=== PATIENT | female | born 1955 | race Caucasian/White ===

== ENCOUNTER → 2023-09-08 09:34 | Outpatient (BNVA) | payer MEDICARE, OTHER, SELFPAY | PROVIDERS: PCP Family Medicine Adult Medicine; Visit Provider Psychiatry & Neurology Neurology | DX: G62.9 Polyneuropathy, unspecified (principal) | CPT/HCPCS: 99203 ==

== ENCOUNTER → 2023-10-04 15:26 | Outpatient (BNVA) | payer MEDICARE, OTHER, SELFPAY | PROVIDERS: PCP Family Medicine Adult Medicine; Visit Provider Obstetrics & Gynecology | DX: R10.2 Pelvic and perineal pain (principal) | CPT/HCPCS: 76830 ==

== ENCOUNTER → 2023-10-05 11:01 | Outpatient (BNVA) | payer MEDICARE, OTHER, SELFPAY | PROVIDERS: PCP Family Medicine Adult Medicine; Visit Provider Internal Medicine Rheumatology | DX: M17.12 Unilateral primary osteoarthritis, left knee (principal); M19.042 Primary osteoarthritis, left hand; M19.071 Primary osteoarthritis, right ankle and foot; M45.6 Ankylosing spondylitis lumbar region; Z11.59 Encounter for screening for other viral diseases; Z11.1 Encounter for screening for respiratory tuberculosis; Z79.899 Other long term (current) drug therapy; M35.00 Sjogren syndrome, unspecified; M54.50 Low back pain, unspecified; G89.29 Other chronic pain | CPT/HCPCS: 36415; 73130; 73562; 73630; 80076; 82306; 82565; 85025; 85651; 86140; 86200; 86431; 86480; 86704; 86803; 86812; 87340; 99204 ==

== ENCOUNTER 2023-10-19 13:06 | Outpatient (CLI) | payer MEDICARE, OTHER, SELFPAY ==
--- NOTE | 2023-10-19 13:15 | XR_ITS ---
WS: [id number] Lumbar spine with flexion, extension, and neutral lateral, 10/19/2023 Clinical Data: POSTLAMINECTOMY SYNDROME Comparison: None. Findings: No compression fractures or subluxation is seen. There is degenerative disc narrowing at L5-S1. There are anterior osteophytes at all the lumbar vertebral bodies. No limitation of motion or subluxation is seen. Impression: 1. Degenerative disc narrowing at L5-S1 with moderate osteophytes L1-L5. 2. Negative for limitation of motion or subluxation on flexion or extension.
== END 2023-10-19 13:07 | disposition home or self-care (01) ==
LOC: RAD 13:07
PROVIDERS: PCP Family Medicine Adult Medicine; Visit Provider Nurse Practitioner
DX: M96.1 Postlaminectomy syndrome, not elsewhere classified (principal); M51.37 Other intervertebral disc degeneration, lumbosacral region; M48.07 Spinal stenosis, lumbosacral region; M25.78 Osteophyte, vertebrae
CPT/HCPCS: 72120

== ENCOUNTER 2023-12-03 07:34 | Emergency (ER) | payer MEDICARE, OTHER, SELFPAY ==
[2023-12-03 07:42] VITALS: BP 159/90; PULSE 82; RESP 16; TEMP 36.5; O2SAT 97; BMI 30.6
--- NOTE | 2023-12-03 07:49 | XRR_ITS ---
PROCEDURE INFORMATION: Exam: XR Chest Exam date and time: 12/03/2023 8:11 AM Age: 68 years old Clinical indication: Cough and dyspnea; Additional info: Dyspnea/cough TECHNIQUE: Imaging protocol: Radiologic exam of the chest. Views: 1 view. COMPARISON: No relevant prior studies available. FINDINGS: Lungs: Unremarkable. No consolidation. Pleural spaces: Unremarkable. No pleural effusion. No pneumothorax. Heart/Mediastinum: Unremarkable. No cardiomegaly. Vasculature: Unfolding of the thoracic aorta. Bones/joints: There is moderate degenerative bilateral acromioclavicular and bilateral glenohumeral joints. XR/XR chest 1V portable [id number] IMPRESSION: No acute cardiopulmonary process.
--- NOTE | 2023-12-03 07:59 | ED_ITS ---
HPI - Abdominal Pain 2 General: Chief Complaint: Abdominal Pain Stated Complaint: right side abd and back pain Time Seen by Provider: 12/03/23 07:40 Source: patient Mode of arrival: ambulatory History of Present Illness: 68-year-old female presents emergency ro om complaining of right side pain. Began earlier this week she relates that after she was gardening she notes that when she moves or takes a deep breath or palpates the lower ribs particular on the right side she has increased discomfort. She has not noticed any rash. No fever sweats chills nausea vomiting or diarrhea no dysuria urgency or frequency. No hematochezia melena hematemesis coffee-ground emesis. She has previously had several abdominal surgeries including a hysterectomy C-sections and tubal ligation. MD elicited complaint: abdominal pain Onset (ago): day(s) Pain Consistency: constant Quality: sharp Exacerbating factors: movement and other (Elevation of the lower ribs) Relieving factors: nothing Associated Symptoms: Denies anorexia, belching, bloating, change in bowel habits, change in stool character, chills, coffee ground emesis, constipation, GI cramping, diarrhea, dyspepsia, dysuria, excessive flatus, fever(s), heartburn, hematochezia, hematuria, hematemesis, fecal incontinence, loose stools, melena, nausea, poor appetite, syncope and vomiting Review of Systems 2 Const: Denies: fever(s) or chills Card: Denies: chest pain or syncope Resp: Denies: dyspnea GI: Denies: abdominal pain, nausea, vomiting, hematemesis, coffee ground emesis, heartburn, diarrhea, constipation, bloating, GI cramping, belching, excessive flatus, fecal incontinence, change in bowel habits, change in stool character, hematochezia or melena : Denies: dysuria, urinary frequency, urinary urgency or hematuria Musc: Denies: neck pain or back pain Skin/Breast: Denies: rash PFSH ED 2 PFSH: Medical History Pain management contract agreement [facility] 10/17/2023, Screen THC pos. 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 Last CT was April 2023. MGUS (monoclonal gammopathy of unknown significance) Abnormal colonoscopy Deviated nasal septum Ganglion cyst Carpal tunnel syndrome Surgical History History of partial hysterectomy S/P bilateral breast reduction History of tonsillectomy H/O tubal ligation H/O: section History of back surgery Family History Father Stroke Heart disease Mother Liver disease Hepatitis Brother Diabetes mellitus, type 2 Bypass graft stenosis Parkinson disease Physical Exam 2 Const: COMMON NORMALS: no acute distress GENERAL APPEARANCE: cooperative and comfortable ORIENTATION/CONSCIOUSNESS: Yes awake, Yes oriented to person, Yes oriented to place and Yes oriented to time HENMT: COMMON NORMALS: normocephalic, atraumatic and hearing grossly normal bilaterally HEAD & SCALP: normocephalic and atraumatic Resp: COMMON NORMALS: normal respiratory effort, No retractions, No use of accessory muscles and clear to auscultation bilaterally AUSCULTATION: clear to auscultation bilaterally Cardio: COMMON NORMALS: regular rate, regular rhythm and No murmurs present (Cardio) RATE: regular rate RHYTHM: regular rhythm GI: COMMON NORMALS: Soft to palpation and No hepatosplenomegaly present A USCULTATION: Yes normoactive bowel sounds PALPATION: Yes Soft to palpation, No Tenderness to palpation present (GI), No Guarding due to palpation present (GI) and Yes No hepatosplenomegaly present Extremity: COMMON NORMALS: normal to inspection, capillary refill normal, no clubbing, cyanosis or edema, no calf tenderness and no pedal edema Neuro: SENSORIUM/ORIENTATION: Yes oriented to person, Yes oriented to place and Yes oriented to time Skin: COMMON NORMALS: no rashes or lesions noted GENERAL SKIN EXAM: no rashes or lesions noted Course 2 Vital Signs: Vital signs: Vital Signs Temperature 97.7 F 12/03/23 07:42 Pulse Rate 82 12/03/23 07:42 Respiratory Rate 16 12/03/23 07:42 Blood Pressure 159/90 12/03/23 07:42 Pulse Oximetry 97 12/03/23 07:42 Oxygen Delivery Me thod Room Air 12/03/23 07:42 MDM - Abdominal Pain Medical Decision Making Labs reviewed as well as chest x-ray. No acute findings on chest x-ray labs and UA unremarkable abdominal exam is benign patient has reproducible pain with movement and deep inspiration pain refers to the lower aspect of the ribs. Suspect a lot of this is due to the activity she participated in earlier in the week that seem to precipitate it. Use diclofenac p.o. and tizanidine as needed hold the topical diclofenac while using the oral. If persist follow-up with primary care Medical Records I reviewed the patient's medical records. Lab Data I reviewed the patient's lab results. 12/03/23 08:08 12/03/23 08:08 Labs/Radiology: Radiology Impressions Chest X-Ray 12/03/23 07:49 IMPRESSION: No acute cardiopulmonary process. Laboratory Results WBC 4.72 10^3/uL (3.29-11.43) 12/03/23 08:08 RBC 3.65 10^6/uL (3.85-5.65) L 12/03/23 08:08 Hgb 11.80 g/dL (11.27-16.99) 12/03/23 08:08 Hct 36.0 % (36-47) 12/03/23 08:08 MCV 98.6 fl (85-98) H 12/03/23 08:08 MCH 32.3 pg (27-33) 12/03/23 08:08 MCHC 32.8 g/dL (30-55) 12/03/23 08:08 RDW 14.8 % (12.1-15.1) 12/03/23 08:08 Plt Count 262 10^3/cmm (157-399) 12/03/23 08:08 MPV 10.3 fL (7.4-10.4) 12/03/23 08:08 Neut % (Auto) 51.1 % 12/03/23 08:08 Lymph % (Auto) 33.9 % 12/03/23 08:08 [place] % (Auto) 9.7 % 12/03/23 08:08 Eos % (Auto) 4.9 % 12/03/23 08:08 Baso % (Auto) 0.4 % 12/03/23 08:08 Neut # (Auto) 2.41 10^3/uL (1.8-7.7) 12/03/23 08:08 Lymph # (Auto) 1.6 10^3/uL (0.8-4.8) 12/03/23 08:08 [place] # (Auto) 0.5 10^3/uL (0.2-0.9) 12/03/23 08:08 Eos # (Auto) 0.2 10^3/uL (0.0-0.8) 12/03/23 08:08 Baso # (Auto) 0.0 10^3/uL (0.0-0.1) 12/03/23 08:08 Nucleated RBC % (auto) 0 % 12/03/23 08:08 Nucleated RBCs # 0.0 /100WBC 12/03/23 08:08 Sodium 138 mmol/L (136-145) 12/03/23 08:08 Potassium 4.1 mmol/L (3.5-5.1) 12/03/23 08:08 Chloride 103 mmol/L (98-107) 12/03/23 08:08 Carbon Dioxide 25 mmol/L (22-29) 12/03/23 08:08 Anion Gap 14.1 (5-19) 12/03/23 08:08 BUN 14 mg/dL (8-23) 12/03/23 08:08 Creatinine 0.7 mg/dL (0.5-0.9) 12/03/23 08:08 GFR Calculation 83.7 mL/min (90-130) L 12/03/23 08:08 Glucose 97 mg/dL (65-115) 12/03/23 08:08 Calculated Osmolality 286 mOsm/kg (285-295) 12/03/23 08:08 Calcium 9.1 mg/dL (8.5-10.5) 12/03/23 08:08 Total Bilirubin 0.4 mg/dL (0.15-1.2) 12/03/23 08:08 AST 20 U/L (0-32) 12/03/23 08:08 ALT 23 U/L (0-33) 12/03/23 08:08 Alkaline Phosphatase 57 U/L (35-105) 12/03/23 08:08 Total Protein 7.0 g/dL (6.6-8.7) 12/03/23 08:08 Albumin 3.7 g/dL (3.5-5.2) 12/03/23 08:08 Globulin 3.3 g/dL (1.3-4.6) 12/03/23 08:08 Lipase 18 U/L (13-60) 12/03/23 08:08 Urine Color Yellow (Yellow) 12/03/23 08:12 Urine Appearance Clear (CLEAR) 12/03/23 08:12 Urine pH 6 (5-7) 12/03/23 08:12 Ur Specific [place] 1.020 (1.005-1.030) 12/03/23 08:12 Urine Protein Neg (Negative) 12/03/23 08:12 Urine Glucose (UA) Norm (Normal) 12/03/23 08:12 Urine Ketones Negative (Negative) 12/03/23 08:12 Urine Blood Trace (Negative) H 12/03/23 08:12 Urine Nitrate Negative (Negative) 12/03/23 08:12 Urine Bilirubin Neg (Negative) 12/03/23 08:12 Urine Urobilinogen Norm mg/dL (Negative) 12/03/23 08:12 Ur Leukocyte Esterase Negative (Negative) 12/03/23 08:12 Urine RBC Rare /hpf (0-2) 12/03/23 08:12 Urine WBC Rare /hpf (0-5) 12/03/23 08:12 Ur Squamous Epith Cells 0-4 /hpf (0-5) H 12/03/23 08:12 Amorphous Sediment Not Reportable 12/03/23 08:12 Urine Bacteria Trace /hpf (NONE) 12/03/23 08:12 Urine Mucus Trace /hpf 12/03/23 08:12 All radiology interpretation(s) finalized by discharge Discharge Plan Discharge Patient Disposition: Home Clinical Impression: Back pain, thoracic Condition: Stable Prescriptions: New tizanidine 4 mg tablet 4 mg PO Q6H PRN (Reason: muscle spasticity) Qty: 20 0RF Rx Instructions: do not exceed 3 doses per 24 hrs diclofenac sodium 75 mg tablet,delayed release (DR/EC) 75 mg PO Q12H PRN (Reason: pain) Qty: 20 0RF Discontinued diclofenac sodium 1 % kit 2 g topical QID Rx Instructions: apply to single elbow, wrist or hand; for hand includes palm/fingers/back of hand No Action methotrexate sodium 2.5 mg tablet See Rx Instructions PO .Q7days Qty: 30 3RF Rx Instructions: take 6 tabs on same day once a week PO .Q7days; folic acid 1 mg tablet 1 mg PO DAILY Qty: 30 3RF prednisone 20 mg tablet See Rx Instructions PO .COMPLEX PRN (Reason: joint pain flare) Qty: 30 1RF Rx Instructions: take 1 or 2 tab daily for 3-7 days as needed for arthritis flare PO PRN; estradiol 0.01 % (0.1 mg/gram) cream 1 g vaginal .twice a week Rx Instructions: for 14 days clobetasol 0.05 % solution 1 applic topical .twice a week albuterol sulfate [ProAir HFA] 90 mcg/actuation HFA aerosol inhaler 2 puff inhalation 6XD PRN (Reason: Shortness Of Breath Or Wheezing) multivitamin Tablet 1 tab PO DAILY cholecalciferol (vitamin D3) 25 mcg (1,000 unit) capsule 25 mcg PO DAILY magnesium 250 mg tablet 250 mg PO DAILY estradiol 10 mcg tablet 10 mcg vaginal .twice a week Qty: 30 11RF turmeric 400 mg Capsule 400 mg PO DAILY Discharge Orders: Discharge ED (Routine); Ordered 12/03/23 Ordered By: Dani Harris Referrals: Pillo Centeno MD [Primary Care Provider] - Discharge Diet: Usual diet Discharge Activity: Increase activity as tolerated Patient Instructions: Opioid Safety, Pain Management Activity Restrictions/Additional Instructions: Thank you for choosing [facility] for your healthcare needs today. Please realize this is an emergency room and that we are providing you with a medical screening exam and this may not be complete and all inclusive of all the testing and or work up that you may need to determine your ailment or severity of your illness. It is very important that you follow up as instructed or that you return to the Emergency Department should you have concerns or if your condition changes or worsens in any way. You are seen today for pain in her lower ribs and mid back. Laboratory tests chest x-ray unremarkable abdominal exam was benign. Suspect this is musculoskeletal given the history you described likely related to the activity earlier in the week use diclofenac orally and tizanidine as needed. Do not use topical diclofenac while using the oral version. Follow-up with your primary care doctor if not improving Coding Level of Care Code ED Strategy Execution Consultant for Leandra Leiva
[2023-12-03 08:26] LABS: Basophils % 0.4 %; Eosinophils # 0.2 10^3/uL (0.0-0.8); Eosinophils % 4.9 %; Lymphocytes # 1.6 10^3/uL (0.8-4.8); Lymphocytes % 33.9 %; Mean Corpuscular HGB Conc 32.8 g/dL (30-55); Mean Corpuscular Hemoglobin 32.3 pg (27-33); Mean Corpuscular Volume 98.6 fl (85-98); Mean Platelet Volume 10.3 fL (7.4-10.4); Monocytes # 0.5 10^3/uL (0.2-0.9); Monocytes % 9.7 %; Neutrophils # 2.41 10^3/uL (1.8-7.7); Neutrophils % 51.1 %; Nucleated Red Blood Cells % 0 %; Platelet Count 262 10^3/cmm (157-399); Red Blood Count 3.65 10^6/uL (3.85-5.65); Red Cell Distribution Width 14.8 % (12.1-15.1); White Blood Count 4.72 10^3/uL (3.29-11.43)
[2023-12-03 08:39] LABS: Alanine Aminotransferase 23 U/L (0-33); Albumin Level 3.7 g/dL (3.5-5.2); Alkaline Phosphatase 57 U/L (35-105); Blood Urea Nitrogen 14 mg/dL (8-23); Calcium 9.1 mg/dL (8.5-10.5); Carbon Dioxide 25 mmol/L (22-29); Chloride 103 mmol/L (98-107); Creatinine Clr Calc Pharmacy 73.8031; Globulin 3.3 g/dL (1.3-4.6); Glomerular Filtration Rate 83.7 mL/min (90-130); Glucose 97 mg/dL (65-115); Lipase 18 U/L (13-60); Osmolality Calculated 286 mOsm/kg (285-295); Sodium 138 mmol/L (136-145); Total Bilirubin 0.4 mg/dL (0.15-1.2)
[2023-12-03 08:55] LABS: Anion Gap 14.1 (5-19); Aspartate Amino Transferase 20 U/L (0-32); Potassium 4.1 mmol/L (3.5-5.1)
[2023-12-03 09:00] LABS: Add Urine Culture? No; Add Urine Microscopic? YES; Bacteria Urine TRACE /hpf; Bilirubin Urine Neg (Negative); Blood Urine Trace (Negative); Glucose Urine UA Norm (Normal); Ketones Urine Negative (Negative); Leukocyte Esterase Urine Negative (Negative); Mucus Urine TRACE /hpf; Nitrate Urine Negative (Negative); Protein Urine Neg (Negative); RBC Urine RARE /hpf (0-2); Squamous Epithelial Cell Urine 0-4 /hpf (0-5); Urine Appearance Clear (CLEAR); Urine Color Yellow (Yellow); Urobilinogen Urine Norm (Negative); WBC Urine RARE /hpf (0-5); pH Urine 6 (5-7)
[2023-12-03 09:21] VITALS: BP 159/90; PULSE 82; RESP 16; TEMP 36.5; O2SAT 97
== END 2023-12-03 09:20 | disposition home or self-care (01) ==
PROVIDERS: Emergency Provider Family Medicine; PCP Family Medicine Adult Medicine
DX: M54.6 Pain in thoracic spine (principal)
CPT/HCPCS: 71045; 80053; 81001; 83690; 85025; 99284

== ENCOUNTER → 2024-01-10 11:08 | Outpatient (BNVA) | payer MEDICARE, OTHER, SELFPAY | PROVIDERS: PCP Family Medicine Adult Medicine; Visit Provider Internal Medicine Rheumatology | DX: D47.2 Monoclonal gammopathy (principal); Z79.899 Other long term (current) drug therapy; M35.00 Sjogren syndrome, unspecified; M19.90 Unspecified osteoarthritis, unspecified site; M54.50 Low back pain, unspecified; G89.29 Other chronic pain | CPT/HCPCS: 99214 ==

== ENCOUNTER → 2024-01-31 13:32 | Outpatient (BNVA) | payer MEDICARE, OTHER, SELFPAY | PROVIDERS: PCP Family Medicine Adult Medicine; Visit Provider Psychiatry & Neurology Neurology | DX: G62.9 Polyneuropathy, unspecified (principal) | CPT/HCPCS: 99212 ==

== ENCOUNTER 2024-02-01 19:50 | Emergency (ER) | payer MEDICARE, OTHER, SELFPAY ==
--- NOTE | 2024-02-01 19:56 | CTR_ITS ---
PROCEDURE INFORMATION: Exam: CT Head Without Contrast Exam date and time: 02/01/2024 8:50 PM Age: 68 years old Clinical indication: Altered mental status/memory loss; Additional info: Encephalopathy, altered mental status TECHNIQUE: Imaging protocol: Computed tomography of the head without contrast. Radiation optimization: All CT scans at this facility use at least one of these dose optimization techniques: automated exposure control; mA and/or kV adjustment per patient size (includes targeted exams where dose is matched to clinical indication); or iterative reconstruction. COMPARISON: No relevant prior studies available. RADIATION DOSE METRICS: Total DLP (mGy-cm): 1047 FINDINGS: Limitations: Multiple images are degraded by motion artifact. Brain: Mild diffuse cortical volume loss. Mild hypodensities in supratentorial periventricular and subcortical white matter, consistent with microangiopathy. No intracranial hemorrhage. Cerebral ventricles: No ventriculomegaly. Paranasal sinuses: Mild mucosal thickening in the maxillary sinuses. The other sinuses are clear. No air-fluid level. Mastoid air cells: Visualized mastoid air cells are well aerated. Parotid and submandibular glands: Inhomogeneous right parotid gland with multiple suspected small nodules or lymph nodes, the largest measuring 9 mm. Bones: Unremarkable. No acute fracture. Soft tissues: Unremarkable. Vasculature: No hyperdense artery. CT/CT head wo con* [id number] IMPRESSION: No acute intracranial abnormality.
[2024-02-01 20:27] VITALS: BP 155/88; PULSE 79; RESP 18; TEMP 36.4; O2SAT 100; BMI 30.7
[2024-02-01] MEDS: sodium chloride 0.9% 1,000 ML 999 ML IV (20:32)
[2024-02-01] MEDS: LORazepam 2 mg/mL INJ 10 mL MDV 1 MG IV (20:37)
[2024-02-01] MEDS: ondansetron 2 mg/ML SDV 2 mL 4 MG IVP (20:37)
--- NOTE | 2024-02-01 20:44 | ED_ITS ---
Documented by User: Courtney James MD 02/01/24 21:49 HPI - Overdose 2 General: Chief Complaint: Overdose Stated Complaint: THC ingestion Time Seen by Provider: 02/01/24 19:53 History of Present Illness: 68-year-old female who is brought to the emergency room by ambulance with altered mental status. Apparently she ate an edible at a get together this evening and is now altered. She has never taken marijuana before. She had some vomiting. She has no focal motor deficits and is moaning and seems very agitated. Review of Systems 2 Narrative: Unable to obtain secondary to clinical condition. PFS ED 2 PFSH: Medical History Encounter for preoperative assessment Pain management contract agreement [facility] 10/17/2023, Screen THC pos. 10/2023 definitive test ordered High risk medication use Inflammatory arthritis Sjogrens syndrome Osteoarthritis involving multiple joints on both sides of body Bilateral knees, shoulders and spine Rheumatoid arthritis Post menopausal syndrome Chronic low back pain Neuropathy Fibromyalgia Pulmonary nodule monitored (5 years) since 2018 and has grown a total of 2 mm and is now 8 mm in size. Last CT was April 2023. MGUS (monoclonal gammopathy of unknown significance) Abnormal colonoscopy Deviated nasal septum Ganglion cyst Carpal tunnel syndrome Surgical History History of partial hysterectomy S/P bilateral breast reduction History of tonsillectomy H/O tubal ligation H/O: section History of back surgery Family History Father Stroke Heart disease Mother Liver disease Hepatitis Brother Diabetes mellitus, type 2 Bypass graft stenosis Parkinson disease Social History Smoking and tobacco/nicotine status: never used tobacco/nicotine Physical Exam 2 Narrative: EXAM NARRATIVE: General: Patient is moaning and seems agitated. Skin: Warm, dry Head: Normocephalic, atraumatic. Neck: Supple, trachea midline. Eye: Extraocular movements are intact. Ears, nose, mouth and throat: Moist oral mucosa Cardiovascular: Regular rate and rhythm, Normal peripheral perfusion. Respiratory: Lungs are clear to auscultation, respirations are non-labored, breath sounds are equal, Symmetrical chest wall expansion. Gastrointestinal: Soft, Nontender, Non distended, Normal bowel sounds. Musculoskeletal: no deformity. Neurological: Not Alert and oriented, No obvious focal neurological deficit observed. Psychiatric: unable to assess. Course 2 Vital Signs: Vital signs: Vital Signs Temperature 97.6 F 02/01/24 20:27 Pulse Rate 73 02/01/24 21:30 Respiratory Rate 18 02/01/24 21:30 Blood Pressure 156/88 02/01/24 21:30 Pulse Oximetry 98 02/01/24 21:30 Oxygen Delivery Me thod Nasal Cannula 02/01/24 21:30 MDM - Overdose Medical Decision Making Medical decision making: Differential diagnosis including but not limited to and based on the above HPI, review of systems and physical exam: This may be a marijuana reaction. This was her first time taking it and unknown how much THC was in the homemade brownies. Ruling out other causes such as stroke with a CT. Urinalysis. Basic lab work. Orders placed to evaluate differential diagnosis based on the above differential, HPI and physical exam Lab Review: Laboratory results were reviewed and interpreted by myself the emergency room physician. Lab work is unremarkable. CBC has a white count of 7 and hemoglobin of 12.8. BUN and creatinine are 20 and 0.9. Glucose is 125. Urinalysis is pending CT head: No acute intracranial process. no intracranial hemorrhage, no evidence of infarct. no evidence of acute fracture.This was reviewed and interpreted by myself the ER physician. Patient care being transferred to Dr. Melgoza at shift change Lab Data 02/01/24 19:30 02/01/24 19:[address] 02/01/24 19:56 IMPRESSION: No acute intracranial abnormality. Laboratory Results WBC 7.21 10^3/uL (3.29-11.43) 02/01/24 19:30 RBC 3.89 10^6/uL (3.85-5.65) 02/01/24 19:30 Hgb 12.70 g/dL (11.27-16.99) 02/01/24 19:30 Hct 38.4 % (36-47) 02/01/24 19:30 MCV 98.7 fl (85-98) H 02/01/24 19:30 MCH 32.6 pg (27-33) 02/01/24 19:30 MCHC 33.1 g/dL (30-55) 02/01/24 19: RDW 13.7 % (12.1-15.1) 02/01/24: Plt Count 275 10^3/cmm (157-399) 02/01/24 19: MPV 11.7 fL (7.4-10.4) H 02/01/24: Neut % (Auto) 51.2 % 02/01/24 19: Lymph % (Auto) 32.5 % 02/01/24 19:30 [place] % (Auto) 9.2 % 02/01/24: Eos % (Auto) 6.4 % 02/01/24: Baso % (Auto) 0.6 % 02/01/24: Neut # (Auto) 3.70 10^3/uL (1.8-7.7) 02/01/24: Lymph # (Auto) 2.3 10^3/uL (0.8-4.8) 02/01/24: [place] # (Auto) 0.7 10^3/uL (0.2-0.9) 02/01/24 19: Eos # (Auto) 0.5 10^3/uL (0.0-0.8) 02/01/24: Baso # (Auto) 0.0 10^3/uL (0.0-0.1) 02/01/24: Nucleated RBC % (auto) 0 % 02/01/24: Nucleated RBCs # 0.0 /100WBC 02/01/24 19: Sodium 142 mmol/L (136-145) 02/01/24 19: Potassium 4.6 mmol/L (3.5-5.1) 02/01/24: Chloride 105 mmol/L (98-107) 02/01/24: Carbon Dioxide 27 mmol/L (22-29) 02/01/24: Anion Gap 14.6 (5-19) 02/01/24:30 BUN 20 mg/dL (8-23) 02/01/24: Creatinine 0.9 mg/dL (0.5-0.9) 02/01/24: GFR Calculation 62.6 mL/min (90-130) L 02/01/24: Glucose 125 mg/dL (65-115) H 02/01/24: Calculated Osmolality 298 mOsm/kg (285-295) H 02/01/24: Calcium 10.0 mg/dL (8.5-10.5) 02/01/24: Urine Color Yellow (Yellow) 02/01/24: Urine Appearance Cloudy (CLEAR) A 02/01/24: Urine pH 7 (5-7) 02/01/24: Ur Specific [place] 1.010 (1.005-1.030) 02/01/24: Urine Protein Neg (Negative) 02/01/24 Urine Glucose (UA) Norm (Normal) 02/01/24: Urine Ketones Negative (Negative) 02/01/24: Urine Blood Neg (Negative) 02/01/24: Urine Nitrate Negative (Negative) 02/01/24 Urine Bilirubin Neg (Negative) 02/01/24: Urine Urobilinogen Neg mg/dL (Negative) 02/01/24: Ur Leukocyte Esterase Negative (Negative) 02/01/24: Urine RBC None /hpf (0-2) 02/01/24: Urine WBC 0-4 /hpf (0-5) H 02/01/24: Ur Squamous Epith Cells None /hpf (0-5) 02/01/24: Amorphous Sediment 3+ /hpf 02/01/24: Urine Bacteria Trace /hpf (NONE) 02/01/24: Urine Opiates Screen Negative ng/mL (Negative) 02/01/24: Ur Barbiturates Screen Negative ng/mL (Negative) 02/01/24: Ur Phencyclidine Scrn Negative ng/mL (Negative) 02/01/24 Ur Amphetamines Screen Negative ng/mL (Negative) 02/01/24: U Benzodiazepines Scrn Negative ng/mL (Negative) 02/01/24: Urine Cocaine Screen Negative ng/mL (Negative) 02/01/24: U Marijuana (THC) Screen Positive ng/mL (Negative) H 05/15/24 21:25 Discharge Plan Discharge Patient Disposition: Home Clinical Impression: Accidental marijuana overdose Condition: Stable Prescriptions: No Action estradiol 0.01 % (0.1 mg/gram) cream 1 g vaginal .twice a week Qty: 42.5 10RF Rx Instructions: for 14 days clobetasol 0.05 % solution 1 applic topical .twice a week albuterol sulfate [ProAir HFA] 90 mcg/actuation HFA aerosol inhaler 2 puff inhalation 6XD PRN (Reason: Shortness Of Breath Or Wheezing) multivitamin Tablet 1 tab PO DAILY cholecalciferol (vitamin D3) 25 mcg (1,000 unit) capsule 25 mcg PO DAILY magnesium 250 mg tablet 250 mg PO DAILY estradiol 10 mcg tablet 10 mcg vaginal .twice a week Qty: 30 11RF pilocarpine HCl 5 mg tablet 5 mg PO TID Qty: 270 1RF leflunomide 10 mg tablet 10 mg PO DAILY Qty: 90 0RF prednisone 5 mg tablet See Rx Instructions PO .COMPLEX PRN (Reason: joint pain flare) Qty: 60 0RF Rx Instructions: take 1-2 tabs daily for 3-7 days prn joint pain flare orally PRN; turmeric 400 mg Capsule 400 mg PO DAILY tizanidine 4 mg tablet 4 mg PO Q6H PRN (Reason: muscle spasticity) Qty: 20 0RF Rx Instructions: do not exceed 3 doses per 24 hrs diclofenac sodium 75 mg tablet,delayed release (DR/EC) 75 mg PO Q12H PRN (Reason: pain) Qty: 20 0RF Discharge Orders: Discharge ED (Routine); Ordered 02/01/24 Ordered By: Nino Melgoza Referrals: Pillo Centeno MD [Primary Care Provider] - 1-3 days Discharge Diet: Advance as tolerated Discharge Activity: Resume usual activity Patient Instructions: Marijuana Abuse Coding Level of Care Code ED Transplant Rn for Chg Fwd Documented by User: Nino Melgoza MD 02/01/24 22:25 HPI - Overdose 2 General: Chief Complaint: Overdose Stated Complaint: THC ingestion Time Seen by Provider: 02/01/24 19:53 [facility] ED 2 PFSH: Medical History Encounter for preoperative assessment Pain management contract agreement [facility] 10/17/2023, Screen THC pos. 10/2023 definitive test ordered High risk medication use Inflammatory arthritis Sjogrens syndrome Osteoarthritis involving multiple joints on both sides of body Bilateral knees, shoulders and spine Rheumatoid arthritis Post menopausal syndrome Chronic low back pain Neuropathy Fibromyalgia Pulmonary nodule monitored (5 years) since 2018 and has grown a total of 2 mm and is now 8 mm in size. Last CT was April 2023. MGUS (monoclonal gammopathy of unknown significance) Abnormal colonoscopy Deviated nasal septum Ganglion cyst Carpal tunnel syndrome Surgical History History of partial hysterectomy S/P bilateral breast reduction History of tonsillectomy H/O tubal ligation H/O: section History of back surgery Family History Father Stroke Heart disease Mother Liver disease Hepatitis Brother Diabetes mellitus, type 2 Bypass graft stenosis Parkinson disease Social History Smoking and tobacco/nicotine status: never used tobacco/nicotine Course 2 Vital Signs: Vital signs: Vital Signs Temperature 97.6 F 02/01/24 20:27 Pulse Rate 73 02/01/24 21:30 Respiratory Rate 18 02/01/24 21:30 Blood Pressure 156/88 02/01/24 21:30 Pulse Oximetry 98 02/01/24 21:30 Oxygen Delivery Me thod Nasal Cannula 02/01/24 21:30 MDM - Overdose Medical Decision Making Medical decision making: Differential diagnosis including but not limited to and based on the above HPI, review of systems and physical exam: This may be a marijuana reaction. This was her first time taking it and unknown how much THC was in the homemade brownies. Ruling out other causes such as stroke with a CT. Urinalysis. Basic lab work. Orders placed to evaluate differential diagnosis based on the above differential, HPI and physical exam Lab Review: Laboratory results were reviewed and interpreted by myself the emergency room physician. Lab work is unremarkable. CBC has a white count of 7 and hemoglobin of 12.8. BUN and creatinine are 20 and 0.9. Glucose is 125. Urinalysis is pending CT head: No acute intracranial process. no intracranial hemorrhage, no evidence of infarct. no evidence of acute fracture.This was reviewed and interpreted by myself the ER physician. Patient care being transferred to Dr. Melgoza at shift change Patient feels much improved currently she is awake alert answering questions appropriately she is stable for discharge with her Lab Data 02/01/24 19:30 02/01/24 19:[address] 02/01/24 19:56 IMPRESSION: No acute intracranial abnormality. Laboratory Results WBC 7.21 10^3/uL (3.29-11.43) 02/01/24 19: RBC 3.89 10^6/uL (3.85-5.65) 02/01/24 19:30 Hgb 12.70 g/dL (11.27-16.99) 02/01/24 19: Hct 38.4 % (36-47) 02/01/24 19:30 MCV 98.7 fl (85-98) H 02/01/24 19:30 MCH 32.6 pg (27-33) 02/01/24 19: MCHC 33.1 g/dL (30-55) 02/01/24 19: RDW 13.7 % (12.1-15.1) 02/01/24 19: Plt Count 275 10^3/cmm (157-399) 02/01/24 19: MPV 11.7 fL (7.4-10.4) H 02/01/24 19:30 Neut % (Auto) 51.2 % 02/01/24 19:30 Lymph % (Auto) 32.5 % 02/01/24 19:30 [place] % (Auto) 9.2 % 02/01/24 19: Eos % (Auto) 6.4 % 02/01/24 19: Baso % (Auto) 0.6 % 02/01/24 19:30 Neut # (Auto) 3.70 10^3/uL (1.8-7.7) 02/01/24 19:30 Lymph # (Auto) 2.3 10^3/uL (0.8-4.8) 02/01/24 19:30 [place] # (Auto) 0.7 10^3/uL (0.2-0.9) 02/01/24 19: Eos # (Auto) 0.5 10^3/uL (0.0-0.8) 02/01/24 19: Baso # (Auto) 0.0 10^3/uL (0.0-0.1) 02/01/24 19: Nucleated RBC % (auto) 0 % 02/01/24 19: Nucleated RBCs # 0.0 /100WBC 02/01/24 19:30 Sodium 142 mmol/L (136-145) 02/01/24 19: Potassium 4.6 mmol/L (3.5-5.1) 02/01/24: Chloride 105 mmol/L (98-107) 02/01/24: Carbon Dioxide 27 mmol/L (22-29) 02/01/24: Anion Gap 14.6 (5-19) 02/01/24 19: BUN 20 mg/dL (8-23) 02/01/24 19: Creatinine 0.9 mg/dL (0.5-0.9) 02/01/24 19: GFR Calculation 62.6 mL/min (90-130) L 02/01/24: Glucose 125 mg/dL (65-115) H 02/01/24: Calculated Osmolality 298 mOsm/kg (285-295) H 02/01/24: Calcium 10.0 mg/dL (8.5-10.5) 02/01/24: Urine Color Yellow (Yellow) 02/01/24: Urine Appearance Cloudy (CLEAR) A 02/01/24: Urine pH 7 (5-7) 02/01/24: Ur Specific [place] 1.010 (1.005-1.030) 02/01/24: Urine Protein Neg (Negative) 02/01/24: Urine Glucose (UA) Norm (Normal) 02/01/24: Urine Ketones Negative (Negative) 02/01/24: Urine Blood Neg (Negative) 02/01/24: Urine Nitrate Negative (Negative) 05/15/24 21:25 Urine Bilirubin Neg (Negative) 02/01/24 21:25 Urine Urobilinogen Neg mg/dL (Negative) 02/01/24 21:25 Ur Leukocyte Esterase Negative (Negative) 02/01/24 21:25 Urine RBC None /hpf (0-2) 02/01/24 21:25 Urine WBC 0-4 /hpf (0-5) H 02/01/24 21:25 Ur Squamous Epith Cells None /hpf (0-5) 02/01/24 21:25 Amorphous Sediment 3+ /hpf 02/01/24 21:25 Urine Bacteria Trace /hpf (NONE) 02/01/24 21:25 Urine Opiates Screen Negative ng/mL (Negative) 02/01/24 21: Ur Barbiturates Screen Negative ng/mL (Negative) 02/01/24 21: Ur Phencyclidine Scrn Negative ng/mL (Negative) 02/01/24 21:25 Ur Amphetamines Screen Negative ng/mL (Negative) 02/01/24 21: U Benzodiazepines Scrn Negative ng/mL (Negative) 02/01/24 21:25 Urine Cocaine Screen Negative ng/mL (Negative) 02/01/24 21:25 U Marijuana (THC) Screen Positive ng/mL (Negative) H 02/01/24 21:25 All radiology interpretation(s) finalized by discharge Discharge Plan Discharge Patient Disposition: Home Clinical Impression: Accidental marijuana overdose Condition: Stable Prescriptions: No Action estradiol 0.01 % (0.1 mg/gram) cream 1 g vaginal .twice a week Qty: 42.5 10RF Rx Instructions: for 14 days clobetasol 0.05 % solution 1 applic topical .twice a week albuterol sulfate [ProAir HFA] 90 mcg/actuation HFA aerosol inhaler 2 puff inhalation 6XD PRN (Reason: Shortness Of Breath Or Wheezing) multivitamin Tablet 1 tab PO DAILY cholecalciferol (vitamin D3) 25 mcg (1,000 unit) capsule 25 mcg PO DAILY magnesium 250 mg tablet 250 mg PO DAILY estradiol 10 mcg tablet 10 mcg vaginal .twice a week Qty: 30 11RF pilocarpine HCl 5 mg tablet 5 mg PO TID Qty: 270 1RF leflunomide 10 mg tablet 10 mg PO DAILY Qty: 90 0RF prednisone 5 mg tablet See Rx Instructions PO .COMPLEX PRN (Reason: joint pain flare) Qty: 60 0RF Rx Instructions: take 1-2 tabs daily for 3-7 days prn joint pain flare orally PRN; turmeric 400 mg Capsule 400 mg PO DAILY tizanidine 4 mg tablet 4 mg PO Q6H PRN (Reason: muscle spasticity) Qty: 20 0RF Rx Instructions: do not exceed 3 doses per 24 hrs diclofenac sodium 75 mg tablet,delayed release (DR/EC) 75 mg PO Q12H PRN (Reason: pain) Qty: 20 0RF Discharge Orders: Discharge ED (Routine); Ordered 02/01/24 Ordered By: Nino Melgoza Referrals: Pillo Centeno MD [Primary Care Provider] - 1-3 days Discharge Diet: Advance as tolerated Discharge Activity: Resume usual activity Patient Instructions: Marijuana Abuse Coding Level of Care Code ED Transplant Rn for Leandra Leiva
[2024-02-01 20:46] LABS: Basophils % 0.6 %; Eosinophils # 0.5 10^3/uL (0.0-0.8); Eosinophils % 6.4 %; Hematocrit 38.4 % (36-47); Lymphocytes # 2.3 10^3/uL (0.8-4.8); Lymphocytes % 32.5 %; Mean Corpuscular HGB Conc 33.1 g/dL (30-55); Mean Corpuscular Hemoglobin 32.6 pg (27-33); Mean Corpuscular Volume 98.7 fl (85-98); Mean Platelet Volume 11.7 fL (7.4-10.4); Monocytes # 0.7 10^3/uL (0.2-0.9); Monocytes % 9.2 %; Neutrophils % 51.2 %; Nucleated Red Blood Cells % 0 %; Platelet Count 275 10^3/cmm (157-399); Red Blood Count 3.89 10^6/uL (3.85-5.65); Red Cell Distribution Width 13.7 % (12.1-15.1); White Blood Count 7.21 10^3/uL (3.29-11.43)
[2024-02-01 21:00] VITALS: BP 146/85; PULSE 75; RESP 14; O2SAT 95
[2024-02-01 21:00] LABS: Blood Urea Nitrogen 20 mg/dL (8-23); Carbon Dioxide 27 mmol/L (22-29); Chloride 105 mmol/L (98-107); Glomerular Filtration Rate 62.6 mL/min (90-130); Glucose 125 mg/dL (65-115); Osmolality Calculated 298 mOsm/kg (285-295); Sodium 142 mmol/L (136-145)
[2024-02-01 21:03] LABS: Anion Gap 14.6 (5-19); Potassium 4.6 mmol/L (3.5-5.1)
[2024-02-01 21:30] VITALS: BP 156/88; PULSE 73; RESP 18; O2SAT 98
[2024-02-01 21:54] LABS: Amphetamines Screen Urine Negative (Negative); Barbiturates Screen Urine Negative (Negative); Benzodiazepines Screen Urine Negative (Negative); Cocaine Screen Urine Negative (Negative); Opiate Screen Urine Negative (Negative); PCP Screen Urine Negative (Negative); THC Screen Urine Positive (Negative)
[2024-02-01 21:57] LABS: Add Urine Culture? No; Amorphous Sediment Urine 3+ /hpf; Bacteria Urine TRACE /hpf; Bilirubin Urine Neg (Negative); Blood Urine Neg (Negative); Glucose Urine UA Norm (Normal); Ketones Urine Negative (Negative); Leukocyte Esterase Urine Negative (Negative); Nitrate Urine Negative (Negative); Protein Urine Neg (Negative); Urine Appearance Cloudy (CLEAR); Urine Color Yellow (Yellow); Urobilinogen Urine Neg (Negative); WBC Urine 0-4 /hpf (0-5); pH Urine 7 (5-7)
[2024-02-01 22:53] VITALS: BP 137/79; PULSE 69; RESP 16; O2SAT 99
== END 2024-02-01 22:55 | disposition home or self-care (01) ==
PROVIDERS: Emergency Medicine; Emergency Provider Emergency Medicine; PCP Family Medicine Adult Medicine
DX: T40.711A Poisoning by cannabis, accidental (unintentional), initial encounter (principal)
CPT/HCPCS: 51701; 70450; 80048; 80306; 81001; 85025; 96361; 96374; 96375; 99285; J2060; J2405; J7030

== ENCOUNTER 2024-02-27 13:22 | Oncology outpatient (recurring) (ONCR) | payer MEDICARE, OTHER, SELFPAY ==
[2024-02-23 14:17] LABS: Basophils # 0.1 10^3/uL (0.0-0.1); Basophils % 0.8 %; Eosinophils # 0.8 10^3/uL (0.0-0.8); Eosinophils % 13.9 %; Hematocrit 41.6 % (36-47); Lymphocytes # 1.6 10^3/uL (0.8-4.8); Lymphocytes % 27.1 %; Mean Corpuscular HGB Conc 32.7 g/dL (30-55); Mean Corpuscular Hemoglobin 31.7 pg (27-33); Mean Platelet Volume 11.1 fL (7.4-10.4); Monocytes # 0.6 10^3/uL (0.2-0.9); Monocytes % 9.8 %; Neutrophils # 2.85 10^3/uL (1.8-7.7); Neutrophils % 48.2 %; Nucleated Red Blood Cells % 0 %; Platelet Count 231 10^3/cmm (157-399); Red Blood Count 4.29 10^6/uL (3.85-5.65); Red Cell Distribution Width 12.9 % (12.1-15.1); White Blood Count 5.91 10^3/uL (3.29-11.43)
[2024-02-23 14:38] LABS: Alanine Aminotransferase 19 U/L (0-33); Albumin Level 4.2 g/dL (3.5-5.2); Alkaline Phosphatase 72 U/L (35-105); Anion Gap 15.1 (5-19); Aspartate Amino Transferase 22 U/L (0-32); Blood Urea Nitrogen 13 mg/dL (8-23); Carbon Dioxide 28 mmol/L (22-29); Chloride 103 mmol/L (98-107); Globulin 3.3 g/dL (1.3-4.6); Glomerular Filtration Rate 83.7 mL/min (90-130); Glucose 94 mg/dL (65-115); Osmolality Calculated 294 mOsm/kg (285-295); Potassium 4.1 mmol/L (3.5-5.1); Sodium 142 mmol/L (136-145); Total Bilirubin 0.4 mg/dL (0.15-1.2); Total Protein 7.5 g/dL (6.6-8.7)
[2024-02-23 14:40] LABS: Alanine Aminotransferase 20 U/L (0-33); Albumin Level 4.5 g/dL (3.5-5.2); Alkaline Phosphatase 79 U/L (35-105); Aspartate Amino Transferase 20 U/L (0-32); Globulin 3.2 g/dL (1.3-4.6); Total Bilirubin 0.4 mg/dL (0.15-1.2); Total Protein 7.7 g/dL (6.6-8.7)
[2024-02-23 15:19] LABS: Immunoglobulin IGA 92 mg/dL (70-400); Immunoglobulin IGG 1465 mg/dL (700-1600); Immunoglobulin IGM 55 mg/dL (40-230)
[2024-02-28 10:21] LABS: PROTEIN, TOTAL 7.3 g/dL (6.1-8.1)
[2024-02-28 11:40] LABS: LAMBDA LIGHT CHAIN, FREE, SERU 14.5 mg/L (5.7-26.3)
[2024-02-28 15:24] LABS: ABNORMAL PROTEIN BAND 1 0.9 g/dL (NONE DETECTED); ALBUMIN 4.2 g/dL (3.8-4.8); ALPHA 1 GLOBULIN 0.3 g/dL (0.2-0.3); ALPHA 2 GLOBULIN 0.7 g/dL (0.5-0.9); BETA 1 GLOBULIN 0.5 g/dL (0.4-0.6); BETA 2 GLOBULIN 0.3 g/dL (0.2-0.5); GAMMA GLOBULIN 1.4 g/dL (0.8-1.7)
[2024-02-28 16:10] LABS: CREATININE, 24 HOUR URINE 1.16 g/24 h (0.50-2.15); PROTEIN, TOTAL, 24 HR UR 90 mg/24 h (<150); Protein/Creatinine Ratio 0.078 (<0.150); Protein/Creatinine Ratio 78 mg/g creat (<150)
[2024-02-29 08:38] LABS: ALBUMIN 100 %; ALPHA-1-GLOBULINS 0 %; ALPHA-2-GLOBULINS 0 %; BETA GLOBULINS 0 %; GAMMA GLOBULINS 0 %
== END 2024-03-18 23:59 | disposition home or self-care (01) ==
PROVIDERS: Internal Medicine Rheumatology; PCP Family Medicine Adult Medicine; Visit Provider Internal Medicine Medical Oncology
DX: Z53.9 Procedure and treatment not carried out, unspecified reason (principal)
CPT/HCPCS: 36415; 80053; 80076; 82784; 83883; 84155; 84156; 84165; 84166; 85025; 86140; 99205

== ENCOUNTER 2024-03-28 11:00 | Oncology outpatient (recurring) (ONCR) | payer MEDICARE, OTHER, SELFPAY ==
--- NOTE | 2024-03-21 15:00 | CTR_ITS ---
PROCEDURE INFORMATION: Exam: CT Chest With Contrast; Diagnostic Exam date and time: 03/21/2024 3:11 PM Age: 69 years old Clinical indication: Condition or disease; Lung condition and disease; Pulmonary nodule, solitary; Additional info: Follow up on pulmonary nodules TECHNIQUE: Imaging protocol: Diagnostic computed tomography of the chest with contrast. Radiation optimization: All CT scans at this facility use at least one of these dose optimization techniques: automated exposure control; mA and/or kV adjustment per patient size (includes targeted exams where dose is matched to clinical indication); or iterative reconstruction. Contrast material: OMNI 350; Contrast volume: 100 ml; Contrast route: INTRAVENOUS (IV); COMPARISON: CR XR chest 2V* [id number] 01/05/2024 8:52 AM RADIATION DOSE METRICS: Total DLP (mGy-cm): 397.29 FINDINGS: Trachea: The airways are patent. Lungs: 4 mm right middle lobe pleural-based nodule (series 4, image 33). 6 mm left lower lobe pleural base nodule (series 4, image 32). No other discrete pulmonary nodules appreciated. No consolidations. Pleural spaces: Unremarkable. No pneumothorax. No pleural effusion. Heart: Normal in size and configuration. No pericardial effusion. Lymph nodes: No concerning mediastinal, hilar, or axillary adenopathy by CT size criteria. Vasculature: Unremarkable. No aortic aneurysm. Liver: Diffuse decrease in hepatic parenchymal density, consistent with fatty infiltration. Kidneys and ureters: There is a simple cyst in the left kidney measuring 1.8 cm. No follow-up is recommended. Bones/joints: Mild multilevel degenerative changes of the spine, as manifested by multilevel anterior osteophytes and multilevel decrease in intervertebral disc space. No acute skeletal abnormality or aggressive osseous lesion. Soft tissues: No acute body wall soft tissue findings. CT/CT chest w con* [id number] IMPRESSION: Two perifissural lung nodules detailed above, favoring benign intrapulmonary lymph nodes. No follow-up is recommended according to current guidelines. COMMENTS: Consistent with the [employer]'s Incidental Findings Committee white paper (J Am Janusz Radiol 2018): Any incidental renal lesion less than 1 cm or classified as too small to characterize, or any incidental cystic renal lesion characterized as simple-appearing, is likely benign. No follow-up imaging is recommended for these lesions per consensus recommendations based on imaging criteria. REFERENCES: 1. MacMahon H, et al. Guidelines for Management of Incidental Pulmonary Nodules Detected on CT Images: From the Fleischner Society 2017. Radiology. 2017;284(1):228-243. 2. Jam J, et al. Updated Fleischner Society Guidelines for Managing Incidental Pulmonary Nodules: Common Questions and Challenging Scenarios. Radiographics. 2018;38(5):7638-2154.
[2024-03-21] MEDS: iohexol 350 mg/mL 500 mL Btl (per mL) IV (15:19)
--- NOTE | 2024-03-28 11:02 | XR_ITS ---
WS: [id number] Skeletal survey, 19 images, 03/28/2024 Clinical Data: monoclonal gammopathy Comparison: None. Findings: Lateral cervical spine: No metastatic lesions are seen. There is osteoarthritis from C4-C7. Lateral skull: The skull is intact without metastatic lesions. AP and lateral lumbar spine: No fractures are seen. There is degenerative disc narrowing at L5-S1. Th ere is osteoarthritis of the lumbar vertebral bodies. AP view of the thoracic spine: No metastatic lesions are seen. The pedicles are intact. 2 views of the right ribs: The ribs are intact without fracture or metastatic lesions. AP views of both humeri and arms: No metastatic lesions are seen. 2 AP views of the pelvis and hips: No metastatic lesions are seen. AP views of both thighs and femur: No metastatic lesions are seen.: AP views of both legs: No metasta tic lesions are seen. The tibia and fibula are normal in both legs. XR/XR bone survey* [id number] IMPRESSION: Negative for metastatic bony lesions. Impression:
== END 2024-04-18 23:59 | disposition home or self-care (01) ==
PROVIDERS: PCP Family Medicine Adult Medicine; Visit Provider Internal Medicine Medical Oncology
DX: D47.2 Monoclonal gammopathy (principal)
CPT/HCPCS: 71260; 77075; Q9967

== ENCOUNTER → 2024-05-29 11:01 | Outpatient (BNVA) | payer MEDICARE, OTHER, SELFPAY | PROVIDERS: PCP Family Medicine Adult Medicine; Visit Provider Internal Medicine Rheumatology | DX: M19.90 Unspecified osteoarthritis, unspecified site (principal); Z79.899 Other long term (current) drug therapy; M35.00 Sjogren syndrome, unspecified; M54.50 Low back pain, unspecified; G89.29 Other chronic pain | CPT/HCPCS: 99214 ==

== ENCOUNTER 2024-06-28 08:55 | Outpatient (CLI) | payer MEDICARE, OTHER, SELFPAY ==
[2024-06-28 09:24] LABS: Basophils # 0.1 10^3/uL (0.0-0.1); Basophils % 1.3 %; Eosinophils # 0.5 10^3/uL (0.0-0.8); Eosinophils % 13.5 %; Hematocrit 39.7 % (36-47); Lymphocytes # 1.2 10^3/uL (0.8-4.8); Mean Platelet Volume 11.1 fL (7.4-10.4); Monocytes # 0.4 10^3/uL (0.2-0.9); Monocytes % 9.8 %; Neutrophils # 1.81 10^3/uL (1.8-7.7); Neutrophils % 45.1 %; Nucleated Red Blood Cells % 0 %; Platelet Count 307 10^3/cmm (157-399); Red Blood Count 3.97 10^6/uL (3.85-5.65); Red Cell Distribution Width 13.6 % (12.1-15.1)
[2024-06-28 09:28] LABS: Erythrocyte Sedimentation Rate 12 mm/hr (0-15)
[2024-06-28 09:49] LABS: Alanine Aminotransferase 24 U/L (0-33); Albumin Level 4.2 g/dL (3.5-5.2); Alkaline Phosphatase 50 U/L (35-105); Aspartate Amino Transferase 30 U/L (0-32); Globulin 3.3 g/dL (1.3-4.6); Glomerular Filtration Rate 83.5 mL/min (90-130); Total Bilirubin 1.1 mg/dL (0.15-1.2); Total Protein 7.5 g/dL (6.6-8.7)
== END 2024-06-28 08:56 | disposition home or self-care (01) ==
LOC: LAB 08:59
PROVIDERS: PCP Family Medicine Adult Medicine; Visit Provider Internal Medicine Rheumatology
DX: M19.90 Unspecified osteoarthritis, unspecified site (principal); Z79.899 Other long term (current) drug therapy
CPT/HCPCS: 36415; 80076; 82565; 82657; 85025; 85651; 86140

== ENCOUNTER 2024-09-27 07:47 | Outpatient (CLI) | payer MEDICARE, OTHER, SELFPAY ==
[2024-09-27 08:14] LABS: Basophils % 0.8 %; Eosinophils # 0.2 10^3/uL (0.0-0.8); Hematocrit 38.8 % (36-47); Lymphocytes # 1.4 10^3/uL (0.8-4.8); Lymphocytes % 35.3 %; Mean Corpuscular HGB Conc 31.7 g/dL (30-55); Mean Corpuscular Hemoglobin 31.2 pg (27-33); Mean Corpuscular Volume 98.5 fl (85-98); Mean Platelet Volume 10.2 fL (7.4-10.4); Monocytes # 0.4 10^3/uL (0.2-0.9); Monocytes % 10.7 %; Neutrophils # 1.84 10^3/uL (1.8-7.7); Neutrophils % 48.2 %; Nucleated Red Blood Cells % 0 %; Platelet Count 304 10^3/cmm (157-399); Red Blood Count 3.94 10^6/uL (3.85-5.65); Red Cell Distribution Width 15.4 % (12.1-15.1); White Blood Count 3.82 10^3/uL (3.29-11.43)
[2024-09-27 08:33] LABS: Alanine Aminotransferase 34 U/L (0-33); Albumin Level 4.1 g/dL (3.5-5.2); Alkaline Phosphatase 44 U/L (35-105); Aspartate Amino Transferase 22 U/L (0-32); Glomerular Filtration Rate 99.7 mL/min (90-130); Total Protein 7.1 g/dL (6.6-8.7)
[2024-09-27 08:58] LABS: Erythrocyte Sedimentation Rate 10 mm/hr (0-15)
== END 2024-09-27 07:48 | disposition home or self-care (01) ==
PROVIDERS: Internal Medicine Rheumatology; PCP Family Medicine Adult Medicine; Visit Provider Family Medicine Adult Medicine
DX: Z79.899 Other long term (current) drug therapy (principal); M19.90 Unspecified osteoarthritis, unspecified site
CPT/HCPCS: 36415; 80076; 82565; 85025; 85651; 86140

== ENCOUNTER → 2024-10-09 10:06 | Outpatient (BNVA) | payer MEDICARE, OTHER, SELFPAY | PROVIDERS: PCP Family Medicine Adult Medicine; Visit Provider Internal Medicine Rheumatology | DX: M47.816 Spondylosis without myelopathy or radiculopathy, lumbar region (principal); M19.90 Unspecified osteoarthritis, unspecified site; Z79.899 Other long term (current) drug therapy; M35.00 Sjogren syndrome, unspecified; M54.50 Low back pain, unspecified; G89.29 Other chronic pain | CPT/HCPCS: 99214 ==

== ENCOUNTER → 2024-11-01 13:49 | Outpatient (BNVA) | payer MEDICARE, OTHER, SELFPAY | PROVIDERS: PCP Family Medicine; Visit Provider Orthopaedic Surgery | DX: M54.50 Low back pain, unspecified (principal); G89.29 Other chronic pain | CPT/HCPCS: 72110; 73523; 99204 ==

== ENCOUNTER 2024-11-07 10:54 | Oncology outpatient (recurring) (ONCR) | payer MEDICARE, OTHER, SELFPAY ==
--- NOTE | 2024-11-07 11:00 | MR_ITS ---
WS: [id number] MRI LUMBAR SPINE NONCONTRAST TECHNIQUE: Sagittal T1, T2 and STIR imaging. Axial T1 and T2 imaging. CLINICAL INFORMATION: Back pain COMPARISON: None. FINDINGS: Mild lumbar curve. No acute compression. Disc bulging worse at L5-S1 with disc desiccation. L1-L2: Mild facet arthropathy. Spinal canal and foramen are patent. L2-L3: Mild facet arthropathy. Spinal canal and foramen are patent. L3-L4: Mild annular bulging. Mild central canal stenosis. Narrowing of the subarticular recess bilaterally. Moderate facet arthropathy. Mild LEFT greater than RIGHT foraminal narrowing. L4-L5: Mild annular bulging with mild central canal stenosis. Impingement of the subarticular recess bilaterally and traversing L5 nerve roots. Moderate facet arthropathy. Mild LEFT foraminal narrowing. L5-S1: Shallow central protrusion. Slight impingement traversing LEFT S1 nerve root in the subarticular recess. Mild facet arthropathy. Foramen are patent. Visualized pelvic bony structures: Normal. Paravertebral soft tissues: Normal. LEFT renal cyst measuring 1.8 cm. Mild central canal stenosis in the cervical spine engineering agent imaging at C4-C6. MR/MR lumbar spine wo con* [id number] IMPRESSION: 1. Mild lumbar curve. No acute compression. Disc desiccation worse at L5-S1. 2. Shallow central protrusion L5-S1 impinges the traversing LEFT greater than RIGHT S1 nerve roots in the subarticular recess. 3. Annular bulging L4-5 with slight impingement traversing L5 nerve roots and mild central canal stenosis. 4. Mild central canal stenosis L3-4 with impingement traversing L4 nerve roots . 5. Mild LEFT L3-L4 and LEFT L4-5 foraminal narrowing. 6. Mild central canal stenosis in the cervical spine engineering agent imaging at C4-C6.
== END 2024-11-16 23:59 | disposition home or self-care (01) ==
LOC: RAD 10:55 → ONCMED 11-08 09:03
PROVIDERS: PCP Family Medicine; Visit Provider Orthopaedic Surgery
DX: D47.2 Monoclonal gammopathy (principal); R91.1 Solitary pulmonary nodule; M54.9 Dorsalgia, unspecified
CPT/HCPCS: 72148

== ENCOUNTER → 2024-11-14 10:12 | Outpatient (BNVA) | payer MEDICARE, OTHER, SELFPAY | PROVIDERS: PCP Family Medicine; Visit Provider Family Medicine | DX: Z13.6 Encounter for screening for cardiovascular disorders (principal) | CPT/HCPCS: 80061 ==

== ENCOUNTER → 2024-11-20 12:49 | Outpatient (BNVA) | payer MEDICARE, OTHER, SELFPAY | PROVIDERS: PCP Family Medicine; Visit Provider Orthopaedic Surgery | DX: Z01.818 Encounter for other preprocedural examination (principal); M48.062 Spinal stenosis, lumbar region with neurogenic claudication | CPT/HCPCS: 36415; 80053; 81001; 85025; 99214 ==

== ENCOUNTER → 2024-12-05 12:20 | Outpatient (BNVA) | payer MEDICARE, OTHER, SELFPAY | PROVIDERS: PCP Family Medicine; Visit Provider Family Medicine | DX: Z01.818 Encounter for other preprocedural examination (principal) | CPT/HCPCS: 81003; 93005 ==

== ENCOUNTER → 2024-12-10 07:54 | Outpatient (BNVA) | payer MEDICARE, OTHER, SELFPAY | PROVIDERS: PCP Family Medicine; Visit Provider Nurse Practitioner Family | DX: L82.1 Other seborrheic keratosis (principal); D23.71 Other benign neoplasm of skin of right lower limb, including hip; D18.01 Hemangioma of skin and subcutaneous tissue; L57.8 Other skin changes due to chronic exposure to nonionizing radiation; L72.0 Epidermal cyst; Z12.83 Encounter for screening for malignant neoplasm of skin; L82.0 Inflamed seborrheic keratosis; Z78.9 Other specified health status; L29.89 Other pruritus; L53.8 Other specified erythematous conditions; L57.0 Actinic keratosis | CPT/HCPCS: 17000; 17110; 99203 ==

== ENCOUNTER 2024-12-14 07:44 | Day surgery (SDC) | payer MEDICARE, OTHER, SELFPAY ==
[2024-12-14] VITALS (19 sets, daily range): BP systolic 128–167; BP diastolic 67–100; PULSE 73–88; RESP 8–19; TEMP 36.1–36.3; O2SAT 93–100; BMI 30.9
[2024-12-14] MEDS: sodium chloride 0.9% 1,000 ML 30 ML IV (08:18)
--- NOTE | 2024-12-14 08:25 | ANES.PREANE2 ---
Pre-Anesthetic Assessment Height/Weight: Height 1.65 m Weight 84.368 kg Temp Pulse Resp BP Pulse Ox O2 Del Method 97.2 F L 74 18 167/100 99 Room Air 12/14/24 08:14 12/14/24 08:14 12/14/24 08:14 12/14/24 08:14 12/14/24 08:14 12/14/24 08:14 Preop Diagnosis: Lumbar stenosis neurogenic claudication Operation Date: 12/14/24 09:35 Proposed Procedures p Lumbar Spine Decompression(Not Applicable) - Ab Kinney, DO Familial anesthetic complications: None Was Beta Spenser taken within 24 hours: N/A Was Clonidine taken within 24 hours: N/A Last intake: Intake Last Liquid Date 12/13/24 Last Liquid Time 22:00 Last Solid Date 12/13/24 Last Solid Time 19:00 Social No alcohol and No tobacco Exam alert, oriented x 3, clear to auscultation bilaterally and regular rate & rhythm Airway Mallampati: Class II Dentition: caps (crowns) Musc/skel Fibromyalgia sjogren's Anesthetic Plan ASA status: 2 Anesthesia: General Risk of > 500 ml blood loss (7ml/kg in children): No Medications/Allergies Home Medications ?Medication ?Instructions ?Recorded ?Confirmed ?Last Taken ?Type albuterol sulfate 90 mcg/actuation 2 puff inhalation 6XD PRN 08/23/23 12/14/24 Unknown History aerosol inhaler (ProAir HFA) Shortness Of Breath Or Wheezing cholecalciferol (vitamin D3) 25 25 mcg PO DAILY 08/23/23 12/13/24 12/13/24 History mcg (1,000 unit) capsule clobetasol 0.05 % scalp solution 1 applic topical .twice a week 08/23/23 12/13/24 12/10/24 History magnesium 250 mg tablet 250 mg PO DAILY 08/23/23 12/13/24 12/13/24 History multivitamin 1 tab PO DAILY 08/23/23 12/13/24 12/13/24 History calcium 250 mg (as 1 tab PO TID 02/23/24 12/13/24 12/13/24 History citrate)-vitamin D3 5 mcg (200 unit) tablet (Citracal Regular) diclofenac sodium 1 % topical gel 2 g topical QID 02/23/24 12/14/24 Unknown History (Voltaren Arthritis Pain) melatonin 5 mg capsule 5 mg PO .nighttime PRN Sleep 02/23/24 12/13/24 12/13/24 History cetirizine 10 mg capsule (All Day 10 mg PO DAILY PRN nasal 07/05/24 12/13/24 Unknown Rx Allergy (cetirizine)) congestion #30 caps fluticasone propionate 50 2 spray intranasal BID #16 grams 07/05/24 12/14/24 Unknown Rx mcg/actuation nasal spray,suspension (Allergy Relief (fluticasone)) azathioprine 50 mg tablet 100 mg (2 x 50 mg) PO BID #90 tabs 10/09/24 12/13/24 12/13/24 Rx tizanidine 4 mg tablet 4 mg PO BID PRN muscle spasticity 10/29/24 12/13/24 12/06/24 Rx #30 tabs gummies 1 chewable tab PO DIRECTED 11/06/24 12/13/24 12/06/24 History estradiol 10 mcg vaginal tablet 10 mcg vaginal .twice weekly #18 11/15/24 12/13/24 12/09/24 Rx (Yuvafem) tabs pantoprazole 40 mg tablet,delayed 40 mg PO QPM 12/13/24 12/13/24 12/13/24 History release Allergies Allergy/AdvReac Type Severity Reaction Status Date / Time Sulfa (Sulfonamide Allergy back ache, Verified 12/05/24 12:35 Antibiotics) chills flu like symptoms, rash Current Medications Generic Name Dose Route Start Last Admin Trade Name Freq PRN Reason Stop Dose Admin Sodium Chloride 1,000 mls @ 30 mls/hr 12/14/24 08:00 12/14/24 08:18 Sodium Chloride 0.9% IV 12/15/24 07:59 30 mls/hr .Q24H ANGEL Administration PFSH Anesthesia Medical History Nicotine dependence, cigarettes, in remission Vitamin D deficiency Hypertrophic and atrophic condition of skin Osteoarthritis of left knee sees DR. Iam Chen ortho SGF Lichen sclerosus et atrophicus of the vulva Chronic GERD IBS (irritable colon syndrome) Post menopausal syndrome Pain management contract agreement [facility] 10/17/2023, Screen THC pos. 10/2023 definitive test ordered High risk medication use Inflammatory arthritis Sjogrens syndrome Osteoarthritis involving multiple joints on both sides of body Bilateral knees, shoulders and spine Chronic low back pain Neuropathy sees Dr. Mcqueen neurologist Fibromyalgia MGUS (monoclonal gammopathy of unknown significance) sees hematology Surgical History Hx of decompression of ulnar nerve right Hx of hand surgery right ganglion cyst removed History of carpal tunnel surgery of right wrist Hx of colonoscopy 2021--reports benign polyps and was told to repeat 10 yrs History of partial hysterectomy ovaries remaining; no cancer hx S/P bilateral breast reduction History of tonsillectomy H/O tubal ligation H/O: section X 1 History of back surgery lumbar Family History Father Stroke Heart disease Mother Liver disease Hepatitis Brother Diabetes mellitus, type 2 Bypass graft stenosis Parkinson disease Social History Smoking and tobacco/nicotine status: never used tobacco/nicotine Quit status (tobacco/nicotine): has quit using Year quit tobacco: 1987 Former quit date comment: 20 years total use Alcohol intake: current Alcohol intake frequency: holidays/special occasions only Substance/Drug Use: never Household members: spouse Marital status: Number of children: 2 Highest education level completed: Some College, No Degree Current occupational status: retired 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
--- NOTE | 2024-12-14 09:24 | W.PM.OPSUD ---
Surgery/Procedure H&P Update DATE OF PROCEDURE: December 14, 2024 DATE H&P PERFORMED: 11/20/24 H&P UPDATE INFORMATION: I have reviewed H&P completed within last 30 days, I have examined patient prior to procedure and No changes to prior documentation PREOP DIAGNOSIS: Lumbar stenosis neurogenic claudication PLANNED PROCEDURE: Operation Date: 12/14/24 09:35 Proposed Procedures p Lumbar Spine Decompression(Not Applicable) - Ab Kinney DO
[2024-12-14] MEDS: ceFAZolin 2,000 mg SDV 2000 MG IVP (09:40)
[2024-12-14] MEDS: lidocaine-epi 1% 20 mL INJ INJECTION (10:04)
--- NOTE | 2024-12-14 11:18 | P.OP_ITS ---
Operative Report Date of procedure: December 14, 2024 Pre-op diagnosis: Lumbar stenosis with neurogenic claudication Procedure done: 1. L4-5 laminectomy with partial facetectomy 2. L5-S1 laminectomy with partial facetectomy Surgeon: Ab Kinney DO Estimated blood loss (mL): 15 Procedure: 1. L4-5 laminectomy with partial facetectomy 2. L5-S1 laminectomy with partial facetectomy Patient is brought to the operative suite. After undergoing anesthesia they are placed in the prone position. All areas of impingement are well padded. Patient is then prepped and draped in the normal sterile fashion. A skin incision is made over the L4-5 level. This is confirmed under c-arm guidance. A series of dilators are passed and the tubular retractor is docked on the L4 lamina. A bovie is used to clear the soft tissue off the lamina and the L 4/5 facet joint. A high speed sheryl is then used to perform the la minectomy and take down the medial aspect of the L 4/5 facet joint. A kerrison rongeure was then used to take down the remaining lamina and smooth the edge of the laminectomy up to the point where the ligamentum flavum attaches. Attention was then brought to the medial aspect of the facet joint. The remaining medial aspect of the superior and inferior aspect of the facet joint were taken down with the kerrison from the pedicle of L4 to L 5. The facet joint had significant hypertrophy. Attention was then brought to the Ligamentum Flavum. The ligament was taken down from the lamina of L4 to L5 and out medially to the remaining facet joint. The ligament was thick. The dura was then exposed. The dura was in good repair. The L4 nerve was then traced with a curette out the L4/5 foramen and found to be adequately decompressed. The L5 nerve was traced with a curette around the L5 pedicle. The lateral recess was opened with a kerrison helping to further decompress the L5 nerve. Wound is then irrigated copiously with saline and surgiflo is used to stop any bleeding. The tubular retractor is removed A skin incision is made over the L5/S1 level. This is confirmed under c-arm guidance. A series of dilators are passed and the tubular retractor is docked on the L5 lamina. A bovie is used to clear the soft tissue off the lamina and the L 5/S1 facet joint. A high speed sheryl is then used to perform the laminectomy and take down the medial aspect of the L 5/S1 facet joint. A kerrison rongeure was then used to take down the remaining lamina and smooth the edge of the laminectomy up to the point where the ligamentum flavum attaches. Attention was then brought to the medial aspect of the facet joint. The remaining medial aspect of the superior and inferior aspect of the facet joint were taken down with the kerrison from the pedicle of L5 to S1. The facet joint had significant hypertrophy. Attention was then brought to the Ligamentum Flavum. The ligament was taken down from the lamina of L5 to S1 and out medially to the remaining facet joint. The ligament was thick. The dura was then exposed. The dura was in good repair. The L5 nerve was then traced with a curette out the L5/S1 foramen and found to be adequately decompressed. The S1 nerve was traced with a curette around the S1 pedicle. The lateral recess was opened with a kerrison helping to further decompress the S1 nerve. Wound is then irrigated copiously with saline and surgiflo is used to stop any bleeding. The tubular retractor is removed and the wound is closed with vicryl and monocryl suture. Glue is then used to protect the wound. A sterile dressing is then placed. Patient was then placed in the supine position and transferred to the PACU in stable condition.
[2024-12-14] MEDS: fentaNYL 50 mcg/mL INJ 2mL IVP ×2 (11:19→11:30)
[2024-12-14] MEDS: HYDROmorphone 1 mg/mL INJ 1ml 0.5 MG IVP (11:42)
--- NOTE | 2024-12-14 12:42 | ANE.PACU2 ---
Inpatient post-anesthesia follow up: Airway intact: Yes Vital signs: Temperature 97.4 F Pulse Rate 75 Respiratory Rate 18 Blood Pressure 143/78 Pulse Oximetry 99 Oxygen Delivery Me thod Room Air Oxygen Flow Rate 8 Fraction of Inspir ed Oxygen Hydration adequate: Yes Nausea and vomiting: No Pain level: 1 Mental status: Baseline
--- NOTE | 2024-12-14 13:21 | XR_ITS ---
WS: [id number] Exam: XR lumbar spine 2-3V* [id number] Date/Time of Exam: 12/14/2024 1:21 PM Reason For Exam: 1. L4-5 laminectomy with partial facetectomy Anterior posterior C-arm images of the lower lumbar spine were obtained for preoperative localization purposes.
== END 2024-12-14 12:45 | disposition home or self-care (01) ==
PROVIDERS: PCP Family Medicine; Visit Provider Orthopaedic Surgery
PROC: (CPT 63005; principal; 2024-12-14 09:25)
DX: M48.062 Spinal stenosis, lumbar region with neurogenic claudication (principal); F17.211 Nicotine dependence, cigarettes, in remission; M79.7 Fibromyalgia; K21.9 Gastro-esophageal reflux disease without esophagitis; Z88.2 Allergy status to sulfonamides; D47.2 Monoclonal gammopathy; K58.9 Irritable bowel syndrome, unspecified; M35.00 Sjogren syndrome, unspecified; Z79.899 Other long term (current) drug therapy
CPT/HCPCS: 63047; 63048; 72100; 76000; J0131; J0690; J1100; J1171; J2405; J2704; J3010; J3490; J7030; J9999

== ENCOUNTER → 2024-12-27 08:16 | Outpatient (BNVA) | payer MEDICARE, OTHER, SELFPAY | PROVIDERS: PCP Family Medicine; Visit Provider Orthopaedic Surgery | DX: Z98.890 Other specified postprocedural states (principal) | CPT/HCPCS: 99024 ==

== ENCOUNTER → 2025-01-29 14:20 | Outpatient (BNVA) | payer MEDICARE, OTHER, SELFPAY | PROVIDERS: PCP Family Medicine; Visit Provider Orthopaedic Surgery | DX: Z98.890 Other specified postprocedural states (principal) | CPT/HCPCS: 99024 ==

== ENCOUNTER 2025-02-05 09:50 | Outpatient (CLI) | payer MEDICARE, OTHER, SELFPAY ==
[2025-02-05 11:24] LABS: Basophils % 0.9 %; Eosinophils # 0.8 10^3/uL (0.0-0.8); Hematocrit 40.1 % (36-47); Lymphocytes # 1.4 10^3/uL (0.8-4.8); Lymphocytes % 30.8 %; Mean Corpuscular HGB Conc 32.2 g/dL (30-55); Mean Corpuscular Hemoglobin 31.2 pg (27-33); Mean Corpuscular Volume 97.1 fl (85-98); Mean Platelet Volume 10.5 fL (7.4-10.4); Monocytes # 0.4 10^3/uL (0.2-0.9); Monocytes % 8.2 %; Neutrophils % 40.9 %; Nucleated Red Blood Cells % 0 %; Platelet Count 326 10^3/cmm (157-399); Red Blood Count 4.13 10^6/uL (3.85-5.65); Red Cell Distribution Width 13.7 % (12.1-15.1); White Blood Count 4.41 10^3/uL (3.29-11.43)
[2025-02-05 11:26] LABS: Erythrocyte Sedimentation Rate 5 mm/hr (0-15)
[2025-02-05 11:34] LABS: Estmated Average Glucose 140; Hemoglobin A1C 6.5 % (4.0-6.0)
[2025-02-05 11:49] LABS: Alanine Aminotransferase 25 U/L (0-33); Albumin Level 4.3 g/dL (3.5-5.2); Alkaline Phosphatase 52 U/L (35-105); Aspartate Amino Transferase 25 U/L (0-32); Globulin 3.1 g/dL (1.3-4.6); Glomerular Filtration Rate 83.5 mL/min (90-130); Total Bilirubin 1.2 mg/dL (0.15-1.2); Total Protein 7.4 g/dL (6.6-8.7)
== END 2025-02-05 09:51 | disposition home or self-care (01) ==
PROVIDERS: PCP Family Medicine; Visit Provider Internal Medicine Rheumatology
DX: M35.00 Sjogren syndrome, unspecified (principal); Z79.899 Other long term (current) drug therapy; R73.01 Impaired fasting glucose
CPT/HCPCS: 36415; 80076; 82565; 83036; 85025; 85651; 86140

== ENCOUNTER → 2025-02-12 11:25 | Outpatient (BNVA) | payer MEDICARE, OTHER, SELFPAY | PROVIDERS: PCP Family Medicine; Visit Provider Internal Medicine Rheumatology | DX: M19.90 Unspecified osteoarthritis, unspecified site (principal); Z79.899 Other long term (current) drug therapy; M35.00 Sjogren syndrome, unspecified; M54.50 Low back pain, unspecified; G89.29 Other chronic pain | CPT/HCPCS: 99214 ==

== ENCOUNTER → 2025-02-18 14:11 | Outpatient (BNVA) | payer MEDICARE, OTHER, SELFPAY | PROVIDERS: PCP Family Medicine; Visit Provider Psychiatry & Neurology Neurology | DX: G62.9 Polyneuropathy, unspecified (principal); M79.602 Pain in left arm; R20.2 Paresthesia of skin | CPT/HCPCS: 99212 ==

== ENCOUNTER → 2025-03-19 13:09 | Outpatient (BNVA) | payer MEDICARE, OTHER, SELFPAY | PROVIDERS: PCP Family Medicine; Visit Provider Orthopaedic Surgery | DX: Z98.890 Other specified postprocedural states (principal); M79.602 Pain in left arm; R20.2 Paresthesia of skin | CPT/HCPCS: 95912; 99024 ==

== ENCOUNTER → 2025-03-27 08:38 | Outpatient (BNVA) | payer MEDICARE, OTHER, SELFPAY | PROVIDERS: PCP Family Medicine; Visit Provider Psychiatry & Neurology Neurology | DX: G62.9 Polyneuropathy, unspecified (principal); M25.519 Pain in unspecified shoulder; M25.512 Pain in left shoulder; M79.602 Pain in left arm; R20.2 Paresthesia of skin; Z98.890 Other specified postprocedural states; G25.0 Essential tremor | CPT/HCPCS: 99212 ==

== ENCOUNTER 2025-04-02 12:46 | Oncology outpatient (recurring) (ONCR) | payer MEDICARE, OTHER, SELFPAY ==
[2025-03-26 14:26] LABS: Hematocrit 39.9 % (36-47); Hemoglobin 13.10 g/dL (11.27-16.99); Mean Corpuscular HGB Conc 32.8 g/dL (30-55); Mean Corpuscular Hemoglobin 32.0 pg (27-33); Mean Corpuscular Volume 97.3 fl (85-98); Nucleated Red Blood Cells % 0 %; Platelet Count 315 10^3/cmm (157-399); Red Blood Count 4.10 10^6/uL (3.85-5.65); White Blood Count 4.90 10^3/uL (3.29-11.43)
[2025-03-26 14:44] LABS: Alanine Aminotransferase 19 U/L (0-33); Albumin Level 4.1 g/dL (3.5-5.2); Alkaline Phosphatase 53 U/L (35-105); Anion Gap 16.4 (5-19); Aspartate Amino Transferase 19 U/L (0-32); Blood Urea Nitrogen 18 mg/dL (8-23); Calcium 9.8 mg/dL (8.5-10.5); Carbon Dioxide 27 mmol/L (22-29); Chloride 102 mmol/L (98-107); Globulin 3.5 g/dL (1.3-4.6); Glucose 97 mg/dL (65-115); Osmolality Calculated 294 mOsm/kg (285-295); Potassium 4.4 mmol/L (3.5-5.1); Sodium 141 mmol/L (136-145); Total Protein 7.6 g/dL (6.6-8.7)
[2025-03-27 06:15] LABS: PROTEIN, TOTAL 7.6 g/dL (6.1-8.1)
[2025-03-27 15:15] LABS: KAPPA LIGHT CHAIN, FREE, SERUM 17.7 mg/L (3.3-19.4); KAPPA/LAMBDA LIGHT CHAINS FREE 1.20 (0.26-1.65); LAMBDA LIGHT CHAIN, FREE, SERU 14.8 mg/L (5.7-26.3)
[2025-03-27 16:59] LABS: ALPHA 1 GLOBULIN 0.3 g/dL (0.2-0.3); ALPHA 2 GLOBULIN 0.6 g/dL (0.5-0.9); BETA 1 GLOBULIN 0.5 g/dL (0.4-0.6); BETA 2 GLOBULIN 0.3 g/dL (0.2-0.5)
[2025-03-29 10:49] LABS: Protein/Creatinine Ratio 0.104 (<0.150); Protein/Creatinine Ratio 104 mg/g creat (<150)
[2025-04-02 12:52] LABS: ALPHA-1-GLOBULINS 0 %; ALPHA-2-GLOBULINS 0 %; BETA GLOBULINS 0 %; GAMMA GLOBULINS 0 %
== END 2025-04-18 23:59 | disposition home or self-care (01) ==
PROVIDERS: Nurse Practitioner; PCP Family Medicine; Visit Provider Orthopaedic Surgery
DX: D47.2 Monoclonal gammopathy (principal); R91.1 Solitary pulmonary nodule; Z87.891 Personal history of nicotine dependence
CPT/HCPCS: 36415; 80053; 82570; 82784; 83883; 84155; 84165; 84166; 85025; 86334; 86335; 99214

== ENCOUNTER → 2025-04-03 10:13 | Outpatient (BNVA) | payer MEDICARE, OTHER, SELFPAY | PROVIDERS: PCP Family Medicine; Visit Provider Specialist | DX: M25.512 Pain in left shoulder (principal); G89.29 Other chronic pain | CPT/HCPCS: 73030; 99204 ==

== ENCOUNTER 2025-05-07 13:47 | Outpatient (CLI) | payer MEDICARE, OTHER, SELFPAY ==
[2025-05-07 16:03] LABS: Hematocrit 37.3 % (36-47); Hemoglobin 11.90 g/dL (11.27-16.99); Mean Corpuscular HGB Conc 31.9 g/dL (30-55); Mean Corpuscular Hemoglobin 31.6 pg (27-33); Mean Corpuscular Volume 98.9 fl (85-98); Nucleated Red Blood Cells % 0 %; Platelet Count 274 10^3/cmm (157-399); Red Blood Count 3.77 10^6/uL (3.85-5.65); White Blood Count 4.77 10^3/uL (3.29-11.43)
[2025-05-07 16:26] LABS: Alanine Aminotransferase 20 U/L (0-33); Albumin Level 4.2 g/dL (3.5-5.2); Alkaline Phosphatase 55 U/L (35-105); Aspartate Amino Transferase 18 U/L (0-32); Globulin 3.2 g/dL (1.3-4.6); Total Protein 7.4 g/dL (6.6-8.7)
== END 2025-05-07 13:48 | disposition home or self-care (01) ==
PROVIDERS: PCP Family Medicine; Visit Provider Internal Medicine Rheumatology
DX: Z79.899 Other long term (current) drug therapy (principal)
CPT/HCPCS: 36415; 80076; 82565; 85025; 85651; 86140

== ENCOUNTER → 2025-06-04 09:47 | Outpatient (BNVA) | payer MEDICARE, OTHER, SELFPAY | PROVIDERS: PCP Family Medicine; Visit Provider Orthopaedic Surgery | DX: Z47.89 Encounter for other orthopedic aftercare (principal) | CPT/HCPCS: 99213 ==

== ENCOUNTER 2025-07-14 09:15 | Emergency (ER) | payer MEDICARE, OTHER, SELFPAY ==
--- OUTSIDE RECORDS SUMMARY | 2025-07-14 09:19 | XMS_ITS | Encounter Summary ---
Author Organization [facility] Address 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 Name Role Phone Unavailable Primary Care Provider Unavailabl e Encounter Details Date Type Department Care Team (Late st Contact Info) Description 07/09/2025 External Device Data [facility] Provider, Abstract NO ADDRESS ON FILE Social History Tobacco Use Types Packs/Day Years Used Date Smoking Tobacco: Never Comments Unknown Sex and Gender Information Value Date Recorded Sex Assigned at Not on file Legal Sex Female 11:50 AM CDT Gender Identity Not on file Sexual Orientation Not on file documented as of this encounter Plan of Treatment Not on file documented as of this encounter Visit Diagnoses Not on filedocumented in this encounter
--- OUTSIDE RECORDS SUMMARY | 2025-07-14 09:19 | XMS_ITS | Clinical Summary ---
Author Organization [facility] Address [address] 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
--- OUTSIDE RECORDS SUMMARY | 2025-07-14 09:19 | XMS_ITS | Patient Health Record ---
Author Organization [facility] Address [address] [place], [place] [id number] Care Team Providers Care Medical Office Clerk Name Role Phone Seth Yang MD Primary Care Provider Melissa Mosqueda Unavailable [phone] Allergies Allergen (clinical drug ingredient) Drug/Non Drug Allergy documented on EMR Reaction Allergy Type Onset Date Status zolpidem Ambien Stopped helping, felt funny Drug Allergy Active duloxetine Cymbalta dizzy Drug Allergy Active gabapentin Gabapentin Carter Drug Allergy Activ e meloxicam Meloxicam GI upset Drug Allergy Active Sulfacet-R flu like symptoms, back pain, itching Drug Allergy Active naproxen Naproxen Did not help Drug Allergy Acti ve Reason For Referral No Information Medications Medication SIG (Take, Route, Frequency, Duration) Notes Start Date End Date Status Dicyclomine HCl 10 MG Capsule Oral; Duration: 30 prn Active Motrin 600 MG Tablet 1 tablet with food or milk as needed Orally once a day 3x a week Active Tumeric 500 Active Massage Therapy as directed as directed as needed weekly; Duration: 12 months 02/02/2023 Active Fiber Adult Gummies 2 GM Tablet Chewable as directed Orally Active Estrace 0.1 MG/GM Cream Vaginal; Duration: 30 Active Caltrate 600+D3 600-800 MG-UNIT Tablet 1 tablet with a meal Orally Once a day; Duration: 30 day(s) Active Vagifem 10 MCG Tablet Vaginal; Duration: 14 Active Clobetasol Cream 0.05% Topical BID Active Multivitamin po qd Active Magnesium 250 MG Tablet 1 tablet with a meal Orally Once a day; Duration: 30 day(s) Active azaTHIOprine 50 MG Tablet take 2 tablets by mouth every day as directed; Duration: 90 days Active Probiotic - Capsule as directed Orally prn Active Budesonide 0.25 MG/2ML Suspension Inhalation; Duration: 60 Active Social History Tobacco Use: Social History Observation Description Date Details (start date - stop date) Former Smoker NA - NA Social History Tobacco Use: Social Info Question Answer Notes Smoking: Are you a: former smoker How long has it been since you last smoked? > 10 years Section Notes: 15 Pack year history of smok ing, quit in 1987. Drinks 1-10 alcoholic drinks a week. Lives at home with her . 15 Pack year history of smok ing, quit in 1987. Drinks 1-10 alcoholic drinks a week. Lives at home with her . 15 Pack year history of smok ing, quit in 1987. Drinks 1-10 alcoholic drinks a week. Lives at home with her . 15 Pack year history of smok ing, quit in 1987. Drinks 1-10 alcoholic drinks a week. Lives at home with her . 15 Pack year history of smok ing, quit in 1987. Drinks 1-10 alcoholic drinks a week. Lives at home with her . 15 Pack year history of smok ing, quit in 1987. Drinks 1-10 alcoholic drinks a week. Lives at home with her . 15 Pack year history of smok ing, quit in 1987. Drinks 1-10 alcoholic drinks a week. Lives at home with her . 15 Pack year history of smok ing, quit in 1987. Drinks 1-10 alcoholic drinks a week. Lives at home with her . 15 Pack year history of smok ing, quit in 1987. Drinks 1-10 alcoholic drinks a week. Lives at home with her . 15 Pack year history of smok ing, quit in 1987. Drinks 1-10 alcoholic drinks a week. Lives at home with her . 15 Pack year history of smok ing, quit in 1987. Drinks 1-10 alcoholic drinks a week. Lives at home with her . 15 Pack year history of smok ing, quit in 1987. Drinks 1-10 alcoholic drinks a week. Lives at home with her . 15 Pack year history of smok ing, quit in 1987. Drinks 1-10 alcoholic drinks a week. Lives at home with her . 15 Pack year history of smok ing, quit in 1987. Drinks 1-10 alcoholic drinks a week. Lives at home with her . 15 Pack year history of smok ing, quit in 1987. Drinks 1-10 alcoholic drinks a week. Lives at home with her . Problems Problem Type SNOMED Code ICD Code Onset Dates Problem Status W/U Status Risk Notes Problem Information temporarily unavailable Fibromyalgia (M79.7) Active confirmed Has been off Cymbalta due to dizziness. Did not tolerate gabapentin in the past. Is currently taking ibuprofen 600 mg two to three times a week. Discussed options of low dose naltrexone if symptoms worsen Problem Information temporarily unavailable MGUS (monoclonal gammopathy of unknown significance) (D47.2) Active confirmed Followed by Hematology at [facility] [place]. Problem Information temporarily unavailable Neuropathy (G62.9) Active confirmed -small fiber neuropathy. Has seen neurology in the past and did not tolerate gabapentin Problem Information temporarily unavailable Osteopenia (M85.80) Active confirmed Last DEXA 08/09 showed T score -1.4, FRAX 14.6, 1.6%, NSC. Continue calcium, vitamin D. 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 Continue Imuran. Has mild disease activity and overall prognosis is good. Rapid 3:4.7 (FM) Problem Information temporarily unavailable Sjogren's disease (M35.00) Active confirmed Low Diagnostic criteria include mild sicca symptoms long history of dental issues, mild peripheral neuropathy, MGUS, positive PHIL, SSA and mild inflammatory arthritis. Is currently on Imuran 100 5 mg a day and doing better. Has mild disease activity and overall prognosis is good. Rapid 3- 4.3 Patient is moving to [place] in July and has been recommended to call us to fax over records. Problem Information temporarily unavailable Encounter for long-term (current) drug use (Z79.899) Active confirmed Recommend labs Problem Information temporarily unavailable Low back pain at multiple sites (M54.50) Active confirmed Is scheduled to see pain management for RFA at [facility] [place] Plan Of Treatment Pending Test Test Name Order Date DEXA-axial 08/07/2019 Insurance Providers Payer Name Payer Address Payer Phone Subscriber Number Group Number Insured Name Patient Relationship to Insured Coverage Start Date Coverage End Date [place] [address] [place] [address] [phone] [id number] Quincy Farmer Self - patient is the insured FOR LIFE [address] [place] [address] [phone] [id number] MarlenyMichael vargas Spouse - patient is the spouse of the insured Medical (General) History Medical History History ICD Code GERD/HH polyneuropathy, small fiber neuropathy-d iagnosed in 2014 insomnia MGUS CTS hypertension tubular adenoma depression IBS Headaches Colitis in 2008 when she was in [place] ? 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
--- OUTSIDE RECORDS SUMMARY | 2025-07-14 09:19 | XMS_ITS | Clinical Summary ---
Author Organization [facility] Address [address] [place] [address] Phone Care Team Providers Care Finish Production Manager Name Role Phone Unavailable Primary Care Provider Unavailabl e Allergies Active Allergy Reactions Criticality Noted Date Comments Sulfa (Sulfonamide Antibiotics) Unknown 06/18/2024 Reaction(s): Unknown; Note: back pain/ fever Medications azaTHIOprine (IMURAN) 50 mg tablet Take 2 Tablets by mouth 2 times daily. 05/29/2024 Active pantoprazole (PROTONIX) 40 mg Tablet, Delayed Release (E.C.) TAKE 1 TABLET BY MOUTH AT BEDTIME NEEDED FOR STOMACH ACID OR REFLUX 05/15/2024 Active predniSONE (DELTASONE) 20 mg tablet 10/05/2023 Active celecoxib (CeleBREX) 200 mg capsule Take 1 Capsule (200 mg) by mouth daily. 30 Capsule 08/07/2024 Active Active Problems No known active problems Encounters Date Type Department Care Team Description 07/10/2025 External Device Data [facility]STRACTION Provider, Abstract 07/09/2025 External Device Data [facility] ABSTRACTION Provider, Abstract 06/04/2025 External Device Data [facility]CTION Provider, Abstract 05/28/2025 External Device Data [facility] Provider, Abstract 04/24/2025 External Device Data [facility] Provider, Abstract 04/23/2025 External Device Data [facility]STRA[facility] Provider, Abstract from Last 3 Months Social History Tobacco Use Types Packs/Day Years Used Date Smoking Tobacco: Never Tobacco Cessation:Counseling Given: Not Answered Comments Unknown Sex and Gender Information Value Date Recorded Sex Assigned at Not on file Legal Sex Female 11:50 AM CDT Gender Identity Not on file Sexual Orientation Not on file Last Filed Vital Signs Vital Sign Reading Time Taken Comments Blood Pressure 124/86 08/07/2024 11:29 AM BILINGUAL MANAGER Pulse - - Temperature - - Respiratory Rate - - Oxygen Saturation - - Inhaled Oxygen Concentration - - Weight 79.5 kg (175 lb 3.2 oz) 08/07/2024 11:29 AM BILINGUAL MANAGER Height 165.1 cm (5' 5 ) 08/07/2024 11:29 AM BILINGUAL MANAGER Body Mass Index 29.15 08/07/2024 11:29 AM BILINGUAL MANAGER Plan of Treatment Health Maintenance Due Date Last Done Comments Pre-Diabetes and Diabetes Screening 1955 FIT-DNA Q 3 years 2002 FIT/FOBT Q 1 year 2002 Flex Sig/CT Colonography Q 5 years 2002 RSV VACCINE (60+ or ) (1 - Risk 50-74 years 1-dose series) 2007 OSTEOPOROSIS SCREENING 2022 03/20/2008 DTAP/TDAP/TD VACCINES (2 - T d or Tdap) 09/28/2022 09/28/2012 BREAST CANCER SCREENING 04/17/2025 04/17/2024, 04/17 INFLUENZA VACCINE (#1) 2025 07/16/2010, 2005 COLORECTAL SCREENING 08/03/2032 08/03/2022, 11/11/2017, 11/11/2017 Colorectal Cancer Screening 08/03/2032 ZOSTER VACCINE Completed 05/15/2021, 02/17, 02/04/2017 PNEUMOCOCCAL VACCINE 50+ YEARS Completed 01/11/2023 Insurance MEDICARE PART A AND B [id number]
--- OUTSIDE RECORDS SUMMARY | 2025-07-14 09:19 | XMS_ITS | Data Portability ---
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 Plan of Treatment Reminders Order Date Submit Date Provider Last Modified By Organization Details Last Modified Time Details Appointments None record ed. Lab None record ed. Referral None record ed. Procedures None record ed. Surgeries None record ed. Imaging None record ed. Medication Orders None record ed. Patient TargetsNo targets recorded. Patient Instructions Encounter Date Encounter Id Patient Instructions Last Modified By Organization Details Last Modified Time 09/09/2021 [id number] This is a normal left upper extremity EMG: I could find no electrophysiologic evidence on today's study to suggest carpal tunnel syndrome nor any of the other more common upper extremity entrapment neuropathies. There is likewise no findings to suggest cervical radiculopathy or brachial plexopathy kpugar Not available 09/09/2021 13:26:08 Reason for Referral None Reported. Procedures Surgical History Date Name Laterality Status Provider Name and Address Organization Details Recorded Time EMG Upper Limb - Single completed Josep Lynch DO [address] [place], [address], [facility] 09/09/2021 13:25:33 Imaging Results None recorded. Procedure Notes None recorded. Medical Equipment None Reported. Medications Name Sig Start Date Stop Date Status Note LastModified by Organization Details LastModified Time hydrocodone 5 mg-acetaminophe n 325 mg tablet active Not Available Not Availa ble Not Available metronidazole 500 mg tablet active Not Available Not Availabl e Not Available azathioprine 50 mg tablet active Not Available Not Available No t Available Zanaflex 4 mg tablet active Not Available Not Available Not Available pantoprazole 40 mg tablet,delayed release active Not Available Not Available Not Available Advair Diskus 250 mcg-50 mcg/dose powder for inhalation active Not Available Not Availab le Not Available montelukast 10 mg tablet active Not Available Not Available No t Available clobetasol 0.05 % topical ointment active Not Available Not Available Not Available dicyclomine 10 mg capsule active Not Available Not Available N ot Available ProAir HFA 90 mcg/actuation aerosol inhaler active Not Available Not Availa ble Not Available Vitals None Recorded Social History None recorded. Functional Status None recorded. Mental Status None recorded. Family History Nothing Reported. Medical History No medical history recorded. Gynecological HistoryNo gynecological history recorded. Obstetrics History GPAL:G 0 P 0 0 0 0 Past Encounters Encounter ID Performer Location Encounter Start Date Encounter Closed Date Diagnosis/Indication Diagnosis SNOMED-CT Code Diagnosis ICD10 Code Diagnosis IMO Codes Diagnosis Note [id number] Josep Lynch DO Main Office [address] [place] [address] [facility] [place] [address] 09/09/2021 12:17:45 09/09/2021 15:08:29 Numbness of hand 737428772 R20.0 Health Concerns Section Related Observation LastModified by Organization Detai ls LastModified Time None Recorded Concern Status LastModified by Organization Details LastModified Time None Recorded Advance Directives Directive None Recorded Payers Insurance Date Sequence Insurance Name Policy Number Policy Morse Covered Member ID Morse Member ID Guarantor Name 09/06/2021 1 [facility] () Quincy Farmer [id number] Quincy Farmer OBGyn Episode No OBEpisode recorded.
--- OUTSIDE RECORDS SUMMARY | 2025-07-14 09:19 | XMS_ITS | Encounter Summary ---
Author Organization [facility] Address 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
[2025-07-14 09:20] VITALS: BP 168/92; PULSE 75; RESP 18; TEMP 36.8; O2SAT 98
--- NOTE | 2025-07-14 10:09 | W.ED.SKABFB ---
HPI - Skin/Abscess/Foreign Bdy General: Chief complaint: Skin/Abscess/Foreign Body Stated complaint: infected spider bite Time Seen by Provider: 07/14/25 10:05 Source: patient Mode of arrival: ambulatory Limitations: no limitations History of Present Illness: 62-year-old female states she has had area of redness over her mons pubis. She states that she is a little black at the center and is concerned she may have a bowel recluse bite. She has pain she rates a 3 out of 10 has had erythema she denies any fever denies any drainage. Related Data Home Medications ?Medication ?Instructions ?Recorded ?Confirmed albuterol sulfate 90 mcg/actuation 2 puff inhalation 6XD PRN 08/23/23 07/01/25 aerosol inhaler (ProAir HFA) Shortness Of Breath Or Wheezing cholecalciferol (vitamin D3) 25 25 mcg PO DAILY 08/23/23 07/01/25 mcg (1,000 unit) capsule clobetasol 0.05 % scalp solution 1 applic topical .twice a week 08/23/23 07/01/25 magnesium 250 mg tablet 250 mg PO DAILY 08/23/23 07/01/25 multivitamin 1 tab PO DAILY 08/23/23 07/01/25 calcium 250 mg (as 1 tab PO TID 02/23/24 07/01/25 citrate)-vitamin D3 5 mcg (200 unit) tablet (Citracal Regular) diclofenac sodium 1 % topical gel 2 g topical QID 02/23/24 07/01/25 (Voltaren Arthritis Pain) melatonin 5 mg capsule 5 mg PO .nighttime PRN Sleep 02/23/24 07/01/25 gummies 1 chewable tab PO DIRECTED 11/06/24 07/01/25 pantoprazole 40 mg tablet,delayed 40 mg PO QPM 12/13/24 07/01/25 release Previous Rx's ?Medication ?Instructions ?Recorded cetirizine 10 mg capsule (All Day 10 mg PO DAILY PRN nasal 07/05/24 Allergy (cetirizine)) congestion #30 caps fluticasone propionate 50 2 spray intranasal BID #16 grams 07/05/24 mcg/actuation nasal spray,suspension (Allergy Relief (fluticasone)) tizanidine 4 mg tablet 4 mg PO Q8H PRN muscle spasticity 12/27/24 14 days #42 tabs azathioprine 50 mg tablet See Rx Instructions PO BID #270 02/12/25 tabs fluoxetine 10 mg tablet 10 mg PO DAILY #90 tabs 05/27/25 estradiol 10 mcg vaginal tablet 10 mcg vaginal .twice weekly #18 07/01/25 (Yuvafem) tabs clindamycin HCl 300 mg capsule 300 mg PO Q8H 7 days #21 caps 07/14/25 (Cleocin HCl) Allergies Allergy/AdvReac Type Severity Reaction Status Date / Time Sulfa (Sulfonamide Allergy back ache, Verified 07/01/25 13:50 Antibiotics) chills flu like symptoms, rash Review of Systems Skin/Breast: Reports: erythema PFSH ED PFSH: Medical History Oropharyngeal dysphagia Prediabetes Anxiety and depression fluoxetine helped but caused dry mouth and jitters; duloxetine didn't help; sertraline didn't help Nicotine dependence, cigarettes, in remission Vitamin D deficiency Hypertrophic and atrophic condition of skin Osteoarthritis of left knee sees DR. Iam Chen ortho SGF Lichen sclerosus et atrophicus of the vulva Chronic GERD IBS (irritable colon syndrome) 06.11.20 Nuclear Medicine Gastric emptying study: normal Post menopausal syndrome Pain management contract agreement [facility] 10/17/2023, Screen THC pos. 10/2023 definitive test ordered High risk medication use Inflammatory arthritis Sjogrens syndrome Osteoarthritis involving multiple joints on both sides of body Bilateral knees, shoulders and spine Chronic low back pain Neuropathy sees Dr. Mcqueen neurologist Fibromyalgia MGUS (monoclonal gammopathy of unknown significance) sees hematology Surgical History Hx of esophagogastroduodenoscopy 06.14.22: esophageal norman; esophagitis; plyps; benign stenosis pyloric History of nasal septoplasty twice and sinus surgery too Hx of decompression of ulnar nerve right Hx of hand surgery right ganglion cyst removed History of carpal tunnel surgery of right wrist Hx of colonoscopy 10-09-2021--hyperplastic polyps and was told to repeat 10 yrs History of partial hysterectomy ovaries remaining; no cancer hx S/P bilateral breast reduction History of tonsillectomy H/O tubal ligation H/O: section X 1 History of back surgery lumbar Family History Father Stroke Heart disease Mother Liver disease Hepatitis Brother Diabetes mellitus, type 2 Bypass graft stenosis Parkinson disease Social History Smoking and tobacco/nicotine status: former use of tobacco/nicotine Quit status (tobacco/nicotine): has quit using Year quit tobacco: 1987 Former quit date comment: 20 years total use Alcohol intake: current Alcohol intake frequency: few times a week Alcohol type: wine Substance/Drug Use: never Household members: spouse Marital status: Number of children: 2 Highest education level completed: Some College, No Degree Current occupational status: retired 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 Exam Const: COMMON NORMALS: no acute distress, patient oriented x3 and healthy appearing HENMT: COMMON NORMALS: normocephalic and atraumatic HEAD & SCALP: normocephalic and atraumatic Neck/C-Spine: COMMON NORMALS: full ROM and supple Chest: COMMONS NORMALS: normal inspection of the chest Resp: COMMON NORMALS: normal respiratory effort Cardio: COMMON NORMALS: regular rate RATE: regular rate Extremity: COMMON NORMALS: normal to inspection and full ROM Neuro: COMMON NORMALS: patient oriented x3, moves all extremities and no focal motor deficits Psych: COMMON NORMALS: mental status grossly normal, Normal thought process present and cooperative THOUGHT PROCESS: Normal thought process present Skin: NARRATIVE SKIN EXAM: Area erythema roughly half dollar size over mons pubis no abscess collection no necrosis Course Vital Signs: Vital signs: Vital Signs Temperature 98.2 F 07/14/25 09:20 Pulse Rate 75 07/14/25 09:20 Respiratory Rate 18 07/14/25 09:20 Blood Pressure 168/92 07/14/25 09:20 Pulse Oximetry 98 07/14/25 09:20 Oxygen Delivery Me thod Room Air 07/14/25 09:20 MDM - Skin/Abscess/Foreign Bdy Medicial Decision Making Patient presents with erythema likely a cellulitis no abscess to drain at this time could be a brown recluse bite we will start her on clindamycin she is to follow-up with her PCP she has no signs of any skin necrosis at this time no signs of necrotizing fasciitis. She stable for discharge she understands agrees with plan Medical Records I reviewed the patient's medical records. No radiology studies performed this visit Discharge Plan Discharge Patient Disposition: Home Clinical Impression: Spider bite wound, Cellulitis Condition: Stable Prescriptions: New clindamycin HCl [Cleocin HCl] 300 mg capsule 300 mg PO Q8H 7 Days Qty: 21 0RF No Action calcium citrate-vitamin D3 [Citracal Regular] 250 mg-5 mcg (200 unit) tablet 1 tab PO TID melatonin 5 mg capsule 5 mg PO .nighttime PRN (Reason: Sleep) diclofenac sodium [Voltaren Arthritis Pain] 1 % gel 2 g topical QID Rx Instructions: apply to single elbow, wrist or hand; for hand includes palm/fingers/back of hand fluticasone propionate [Allergy Relief (fluticasone)] 50 mcg/actuation spray,suspension 2 spray intranasal BID Qty: 16 0RF Rx Instructions: administer into each nostril All Day Allergy (cetirizine) 10 mg capsule 10 mg PO DAILY PRN (Reason: nasal congestion) Qty: 30 0RF gummies 1 chewable tab PO DIRECTED Rx Instructions: THC gummies estradiol [Yuvafem] 10 mcg tablet 10 mcg vaginal .twice weekly Qty: 18 1RF clobetasol 0.05 % solution 1 applic topical .twice a week albuterol sulfate [ProAir HFA] 90 mcg/actuation HFA aerosol inhaler 2 puff inhalation 6XD PRN (Reason: Shortness Of Breath Or Wheezing) multivitamin Tablet 1 tab PO DAILY cholecalciferol (vitamin D3) 25 mcg (1,000 unit) capsule 25 mcg PO DAILY magnesium 250 mg tablet 250 mg PO DAILY azathioprine 50 mg tablet See Rx Instructions PO BID Qty: 270 1RF Rx Instructions: takes 2 in AM and 1 in PM fluoxetine 10 mg tablet 10 mg PO DAILY Qty: 90 0RF tizanidine 4 mg tablet 4 mg PO Q8H MDD 3 PRN (Reason: muscle spasticity) 14 Days Qty: 42 0RF pantoprazole 40 mg tablet,delayed release (DR/EC) 40 mg PO QPM Rx Instructions: TAKE 1 TABLET BY MOUTH AT BEDTIME NEEDED FOR STOMACH ACID OR REFLUX Discharge Orders: Discharge ED (Routine); Ordered 07/14/25 Ordered By: Nino Melgoza Referrals: Sejal Mcpherson MD [Primary Care Provider, Family Practice] - 1-3 days Discharge Diet: Advance as tolerated Discharge Activity: Resume usual activity Patient Instructions: Cellulitis (ED), Brown Recluse Spider Bite (ED) Print Language: French Coding Level of Care Code ED Property Management Coordinator for Leandra Leiva
== END 2025-07-14 10:20 | disposition home or self-care (01) ==
PROVIDERS: Emergency Provider Emergency Medicine; PCP Family Medicine
DX: T63.301A Toxic effect of unspecified spider venom, accidental (unintentional), initial encounter (principal); L03.314 Cellulitis of groin; Z87.891 Personal history of nicotine dependence; X58.XXXA Exposure to other specified factors, initial encounter
CPT/HCPCS: 99283

== ENCOUNTER 2025-07-15 10:15 | Outpatient (CLI) | payer MEDICARE, OTHER, SELFPAY ==
--- NOTE | 2025-07-15 11:00 | FL_ITS ---
WS: [id number] Exam: FL barium swallow modifd [id number] Date/Time of Exam: 07/15/2025 10:36 AM Reason For Exam: Fluoroscopy time: 3min [id number] minutes # of spot films: Modified barium swallow was performed in conjunction with the speech therapy service. Oropharyngeal phase of swallowing was normal. The patient tolerated all consistencies of barium mixture foodstuffs without aspiration or penetration. The patient swallowed a barium tablet without difficulty however the tablet was retained in the lower one third of the esophagus. The tablet was propelled into the stomach with additional ingestion of thin liquid barium. FL/FL barium swallow modifd [id number] IMPRESSION: 1. No aspiration or penetration. 2. There may be mild hypomotility of the lower esophagus. A separate report with detailed recommendations will follow from the speech the rapy service.
== END 2025-07-15 10:16 | disposition home or self-care (01) ==
LOC: RAD 10:17
PROVIDERS: PCP Family Medicine; Visit Provider Family Medicine
DX: R13.12 Dysphagia, oropharyngeal phase (principal)
CPT/HCPCS: 74230; 92611

== ENCOUNTER 2025-07-31 11:22 | Outpatient (CLI) | payer MEDICARE, OTHER, SELFPAY ==
[2025-07-31 12:53] LABS: Hematocrit 41.1 % (36-47); Hemoglobin 13.50 g/dL (11.27-16.99); Mean Corpuscular HGB Conc 32.8 g/dL (30-55); Mean Corpuscular Hemoglobin 32.0 pg (27-33); Mean Corpuscular Volume 97.4 fl (85-98); Nucleated Red Blood Cells % 0 %; Platelet Count 319 10^3/cmm (157-399); Red Blood Count 4.22 10^6/uL (3.85-5.65); White Blood Count 3.71 10^3/uL (3.29-11.43)
[2025-07-31 13:17] LABS: Estmated Average Glucose 128; Hemoglobin A1C 6.1 % (4.0-6.0)
[2025-07-31 13:20] LABS: Alanine Aminotransferase 26 U/L (0-33); Albumin Level 4.4 g/dL (3.5-5.2); Alkaline Phosphatase 55 U/L (35-105); Aspartate Amino Transferase 27 U/L (0-32); Globulin 3.2 g/dL (1.3-4.6); Total Protein 7.6 g/dL (6.6-8.7)
== END 2025-07-31 11:23 | disposition home or self-care (01) ==
LOC: LAB 11:26
PROVIDERS: PCP Family Medicine; Visit Provider Internal Medicine Rheumatology
DX: Z79.899 Other long term (current) drug therapy (principal); R73.03 Prediabetes
CPT/HCPCS: 36415; 80076; 82565; 83036; 85025; 85651; 86140

== ENCOUNTER → 2025-08-05 10:49 | Outpatient (BNVA) | payer MEDICARE, OTHER, SELFPAY | PROVIDERS: PCP Family Medicine; Visit Provider Internal Medicine Rheumatology | DX: M13.80 Other specified arthritis, unspecified site (principal); Z79.899 Other long term (current) drug therapy; M35.00 Sjogren syndrome, unspecified; M54.50 Low back pain, unspecified; G89.29 Other chronic pain; M50.30 Other cervical disc degeneration, unspecified cervical region; M51.369 Other intervertebral disc degeneration, lumbar region without mention of lumbar back pain or lower extremity pain | CPT/HCPCS: 99214 ==